=== PATIENT | male | born 1930 | race Two or more races ===

== ENCOUNTER → 2017-02-04 | Outpatient (CLI) | payer OTHER ==
[~2017-02-04] MED LIST: ASPI325T4 PO; ATOR40TA52 PO; IBU800T PO; LOSA25TA9 PO; MISO200T67 PO; MULT-13; NORT25CA PO; PRED-559 PO; TAMS0.4C36 PO
== END | disposition home or self-care (01) ==
LOC: XY 09:44
PROVIDERS: ATTEND Internal Medicine
DX: M79.604 Pain in right leg (principal); E78.00 Pure hypercholesterolemia, unspecified; I10 Essential (primary) hypertension
CPT/HCPCS: 93923; 93925

== ENCOUNTER → 2017-08-25 | Outpatient (CLI) | payer OTHER ==
[~2017-08-25] MED LIST changes: -IBU800T PO; +IBUP800T24 PO
[2017-08-25 08:02] LABS: Urine Bacteria NONE SEEN /hpf (None Seen); Urine Blood Negative /uL (Negative); Urine Specific Gravity 1.011 (1.001-1.035); Urine WBC <1 /hpf (0 - 3)
[2017-08-25 08:03] LABS: Basophils # (auto) 0.1 uL; Basophils % (auto) 0.9 % (0.0-2.0); Eosinophils # (auto) 0.3 uL; Eosinophils % (auto) 4.6 % (0.0-7.0); Hematocrit 43.3 % (41.0-53.0); Hemoglobin 14.6 g/dL (13.5-17.5); Lymphocytes # (auto) 1.8 uL; Lymphocytes % (auto) 26.4 % (10.0-50.0); Mean Corpuscular Hemoglobin 30.6 pg (28.0-32.0); Mean Corpuscular Hgb Conc. 33.7 g/dL (32.0-36.0); Monocytes # (auto) 0.6 uL; Monocytes % (auto) 8.5 % (0.0-12.0); Neutrophils # (auto) 4.1 uL; Neutrophils % (auto) 59.6 % (37.0-80.0); Nucleated Red Blood Cells % 0.1 %; Platelet Count (auto) 231 10^3/uL (140-450); Red Blood Cells 4.76 10^6/uL (4.5-5.90); Red Cell Distribution Width 14.8 % (11.8-14.3); White Blood Cell 6.9 10^3/uL (4.4-10.8)
[2017-08-25 09:12] LABS: Albumin 3.8 g/dL (3.4-5.0); BUN/Creatinine Ratio 18.8; Bilirubin, Total 0.5 mg/dL (0.2-1.0); Calcium 9.2 mg/dL (8.5-10.1); Potassium 4.1 mmol/L (3.5-5.1); Total Protein 8.1 g/dL (6.4-8.2)
== END | disposition home or self-care (01) ==
LOC: LAB 06:33
PROVIDERS: ATTEND Family Medicine
DX: E11.8 Type 2 diabetes mellitus with unspecified complications (principal); I10 Essential (primary) hypertension; E55.9 Vitamin D deficiency, unspecified; E78.5 Hyperlipidemia, unspecified
CPT/HCPCS: 36415; 80053; 80061; 81001; 82043; 82306; 83036; 85025

== ENCOUNTER → 2017-10-01 | Outpatient (CLI) | payer OTHER ==
[2017-10-02 08:07] LABS: PSA Free 1.68 ng/mL; Prostate Specific Antigen 7.4 ng/mL (0.0-4.0)
== END | disposition home or self-care (01) ==
LOC: LAB 06:28
PROVIDERS: ATTEND Urology
DX: N40.1 Benign prostatic hyperplasia with lower urinary tract symptoms (principal)
CPT/HCPCS: 84153; 84154

== ENCOUNTER 2017-10-08 07:15 | Emergency (ER) | payer OTHER ==
[~2017-10-08] VITALS: Ht 172.7 cm; Wt 104.3 kg
[2017-10-08 07:40] VITALS: BP 146/86
[2017-10-08] MEDS ORDERED: cloNIDine HCL 0.1 MG TAB PO ONE (08:00)
[2017-10-08 08:04] LABS: Urine RBC None Seen /hpf (0 - 3)
[2017-10-08 08:10] LABS: Urine Bilirubin Negative (Negative); Urine Blood Negative /uL (Negative); Urine Color Yellow (Yellow); Urine Glucose Normal (Normal); Urine Ketone Negative (Negative); Urine Nitrite Negative (Negative); Urine Squamous Epithelial Cell FEW /hpf (<5); Urine Urobilinogen Normal (Negative)
== END 2017-10-08 08:25 | disposition home or self-care (01) ==
LOC: ER 07:15
DX: I16.0 Hypertensive urgency (principal); I10 Essential (primary) hypertension; K21.9 Gastro-esophageal reflux disease without esophagitis; E78.5 Hyperlipidemia, unspecified; R42 Dizziness and giddiness; Z79.82 Long term (current) use of aspirin; Z79.899 Other long term (current) drug therapy
CPT/HCPCS: 81001; 93005

== ENCOUNTER → 2018-10-28 | Outpatient (CLI) | payer OTHER ==
[~2018-10-28] MED LIST changes: +LOSA25TA40 PO; -LOSA25TA9 PO
[2018-10-28 08:25] LABS: Basophils # (auto) 0.1 uL; Basophils % (auto) 1.3 % (0.0-2.0); Eosinophils # (auto) 0.2 uL; Eosinophils % (auto) 4.1 % (0.0-7.0); Hematocrit 45.5 % (41.0-53.0); Hemoglobin 14.9 g/dL (13.5-17.5); Lymphocytes # (auto) 1.3 uL; Lymphocytes % (auto) 21.3 % (10.0-50.0); Mean Corpuscular Hemoglobin 30.5 pg (28.0-32.0); Mean Corpuscular Hgb Conc. 32.7 g/dL (32.0-36.0); Mean Corpuscular Volume 93.2 fL (80.0-100.0); Monocytes # (auto) 0.6 uL; Monocytes % (auto) 9.4 % (0.0-12.0); Neutrophils # (auto) 3.8 uL; Neutrophils % (auto) 63.9 % (37.0-80.0); Nucleated Red Blood Cells % 0.1 %; Platelet Count (auto) 214 10^3/uL (140-450); Red Blood Cells 4.88 10^6/uL (4.5-5.90); Red Cell Distribution Width 14.3 % (11.8-14.3); White Blood Cell 5.9 10^3/uL (4.4-10.8)
[2018-10-28 08:28] LABS: Urine Bacteria NONE SEEN /hpf (None Seen); Urine Blood Negative /uL (Negative); Urine Mucus FEW (None Seen); Urine WBC 1 /hpf (0 - 3)
[2018-10-28 08:45] LABS: Albumin 3.4 g/dL (3.4-5.0); BUN/Creatinine Ratio 16.3; Calcium 8.5 mg/dL (8.5-10.1); Potassium 4.2 mmol/L (3.5-5.1)
[2018-10-28 08:51] LABS: Bilirubin, Total 0.5 mg/dL (0.2-1.0); Total Protein 7.4 g/dL (6.4-8.2)
== END | disposition home or self-care (01) ==
LOC: LAB 07:55
PROVIDERS: ATTEND Internal Medicine
DX: I10 Essential (primary) hypertension (principal); E78.5 Hyperlipidemia, unspecified; E11.65 Type 2 diabetes mellitus with hyperglycemia; E66.01 Morbid (severe) obesity due to excess calories
CPT/HCPCS: 36415; 80053; 80061; 81001; 82043; 83036; 84439; 84443; 85025

== ENCOUNTER 2018-12-10 10:12 | Emergency (ER) | payer OTHER ==
[~2018-12-10] VITALS: Ht 172.7 cm; Wt 108.9 kg
[2018-12-10 10:46] VITALS: BP 142/63
[2018-12-10] MEDS ORDERED: traMADol HCL 50 MG TAB PO ONE (11:00)
== END 2018-12-10 12:08 | disposition home or self-care (01) ==
LOC: ER 10:12
DX: M17.11 Unilateral primary osteoarthritis, right knee (principal); I10 Essential (primary) hypertension; E78.5 Hyperlipidemia, unspecified; K21.9 Gastro-esophageal reflux disease without esophagitis
CPT/HCPCS: 73562

== ENCOUNTER → 2019-02-03 | Day surgery (SDC) | payer OTHER ==
[2019-01-31 10:44] LABS: Basophils # (auto) 0 uL; Basophils % (auto) 0.7 % (0.0-2.0); Eosinophils # (auto) 0.2 uL; Eosinophils % (auto) 2.7 % (0.0-7.0); Hematocrit 44.1 % (41.0-53.0); Hemoglobin 14.4 g/dL (13.5-17.5); Lymphocytes # (auto) 1.5 uL; Lymphocytes % (auto) 21.1 % (10.0-50.0); Mean Corpuscular Hemoglobin 29.9 pg (28.0-32.0); Mean Corpuscular Hgb Conc. 32.6 g/dL (32.0-36.0); Mean Corpuscular Volume 91.7 fL (80.0-100.0); Monocytes # (auto) 0.7 uL; Monocytes % (auto) 10.2 % (0.0-12.0); Neutrophils # (auto) 4.7 uL; Neutrophils % (auto) 65.3 % (37.0-80.0); Nucleated Red Blood Cells % 0.1 %; Platelet Count (auto) 257 10^3/uL (140-450); Red Blood Cells 4.81 10^6/uL (4.5-5.90); Red Cell Distribution Width 14.8 % (11.8-14.3); White Blood Cell 7.2 10^3/uL (4.4-10.8)
[2019-01-31 10:58] LABS: Partial Thromboplastin Time 26.9 sec (23.78-33.04); Prothrombin Time 10.7 sec (9.27-12.13)
[~2019-02-03] VITALS: Ht 172.7 cm; Wt 104.3 kg
[~2019-02-03] MED LIST changes: -ASPI325T4 PO; +ASPI81TA27 PO; +ATEN50TA PO; -IBUP800T24 PO; +LIDOCAINE VISCOUS 2% 15ML UD ONE; +MIDAZOLAM HCL 5 MG/ML-1ML VIAL ONE; -MISO200T67 PO; -MULT-13; -NORT25CA PO; -PRED-559 PO; +RANI1TAB6 PO; +SODIUM CHLORIDE LOCK 10 ML ONE; -TAMS0.4C36 PO; +diphenhdrAMINE HCL 50 MG/1 ML VL ONE; +fentaNYL CITRATE 100 MCG/2 ML VL ONE
[2019-02-03 10:54] VITALS: BP 140/88
== END | disposition home or self-care (01) ==
LOC: GI 08:44
PROVIDERS: ATTEND Internal Medicine Gastroenterology
DX: K29.80 Duodenitis without bleeding (principal); K29.70 Gastritis, unspecified, without bleeding; E66.9 Obesity, unspecified; Z88.8 Allergy status to other drugs, medicaments and biological substances; Z88.5 Allergy status to narcotic agent; Z87.891 Personal history of nicotine dependence; Z79.82 Long term (current) use of aspirin; Z82.49 Family history of ischemic heart disease and other diseases of the circulatory system; Z80.9 Family history of malignant neoplasm, unspecified; Z68.35 Body mass index [BMI] 35.0-35.9, adult; Z79.899 Other long term (current) drug therapy
CPT/HCPCS: 36415; 43239; 82962; 85025; 85610; 85730; 88305; 88342; A6257; J2250; J3010; J7030

== ENCOUNTER → 2019-04-06 | Outpatient (CLI) | payer OTHER ==
[~2019-04-06] MED LIST changes: -LIDOCAINE VISCOUS 2% 15ML UD ONE; -MIDAZOLAM HCL 5 MG/ML-1ML VIAL ONE; -SODIUM CHLORIDE LOCK 10 ML ONE; -diphenhdrAMINE HCL 50 MG/1 ML VL ONE; -fentaNYL CITRATE 100 MCG/2 ML VL ONE
[2019-04-06 07:48] LABS: Basophils # (auto) 0.1 uL; Basophils % (auto) 1.1 % (0.0-2.0); Eosinophils # (auto) 0.2 uL; Eosinophils % (auto) 4.4 % (0.0-7.0); Hematocrit 44.7 % (41.0-53.0); Hemoglobin 14.6 g/dL (13.5-17.5); Lymphocytes # (auto) 1.5 uL; Lymphocytes % (auto) 28.6 % (10.0-50.0); Mean Corpuscular Hgb Conc. 32.7 g/dL (32.0-36.0); Mean Corpuscular Volume 91.7 fL (80.0-100.0); Monocytes # (auto) 0.5 uL; Neutrophils % (auto) 56.9 % (37.0-80.0); Platelet Count (auto) 218 10^3/uL (140-450); Red Blood Cells 4.87 10^6/uL (4.5-5.90); Red Cell Distribution Width 15.3 % (11.8-14.3); White Blood Cell 5.3 10^3/uL (4.4-10.8)
[2019-04-06 08:42] LABS: Potassium 4.3 mmol/L (3.5-5.1)
[2019-04-06 08:51] LABS: Folate (Folic Acid) 6.28 ng/mL (5.38-24)
[2019-04-06 08:56] LABS: Albumin 3.4 g/dL (3.4-5.0); BUN/Creatinine Ratio 10.2; Bilirubin, Total 0.5 mg/dL (0.2-1.0); Calcium 8.5 mg/dL (8.5-10.1); Total Protein 7.7 g/dL (6.4-8.2)
== END | disposition home or self-care (01) ==
LOC: LAB 07:08
PROVIDERS: ATTEND Internal Medicine
DX: I10 Essential (primary) hypertension (principal)
CPT/HCPCS: 36415; 80053; 80061; 82607; 82746; 83036; 85025

== ENCOUNTER → 2019-07-19 | Outpatient (CLI) | payer OTHER ==
[~2019-07-19] VITALS: Ht 172.7 cm; Wt 113.4 kg
[~2019-07-19] MED LIST changes: +ADENOSINE 95 MG in GIVE UN-DILUTED 0 ML IV ONE; +ASPI-404 PO; -ASPI81TA27 PO; +LOSA25TA38 PO; -LOSA25TA40 PO; +RANI-435 PO; -RANI1TAB6 PO
[2019-07-19 11:08] VITALS: BP 171/87
== END | disposition home or self-care (01) ==
LOC: XY 09:11
PROVIDERS: ATTEND Internal Medicine
DX: I10 Essential (primary) hypertension (principal); E78.5 Hyperlipidemia, unspecified; E11.9 Type 2 diabetes mellitus without complications; R53.83 Other fatigue; R29.898 Other symptoms and signs involving the musculoskeletal system; M19.90 Unspecified osteoarthritis, unspecified site
CPT/HCPCS: 78452; 93017; A9500; J0153

== ENCOUNTER → 2019-08-10 | Outpatient (CLI) | payer OTHER ==
[~2019-08-10] MED LIST changes: -ADENOSINE 95 MG in GIVE UN-DILUTED 0 ML IV ONE
== END | disposition home or self-care (01) ==
LOC: XYW 09:53
PROVIDERS: ATTEND Internal Medicine
DX: I11.9 Hypertensive heart disease without heart failure (principal); I06.8 Other rheumatic aortic valve diseases
CPT/HCPCS: 93306

== ENCOUNTER 2019-09-28 22:38 | Emergency (ER) | payer OTHER ==
[~2019-09-28] VITALS: Ht 172.7 cm; Wt 108.0 kg
[2019-09-28 23:40] LABS: Basophils # (auto) 0.1 uL; Basophils % (auto) 0.8 % (0.0-2.0); Eosinophils # (auto) 0.3 uL; Eosinophils % (auto) 4.8 % (0.0-7.0); Hematocrit 44.7 % (41.0-53.0); Hemoglobin 14.7 g/dL (13.5-17.5); Lymphocytes # (auto) 1.4 uL; Lymphocytes % (auto) 22.1 % (10.0-50.0); Mean Corpuscular Hemoglobin 30.1 pg (28.0-32.0); Mean Corpuscular Hgb Conc. 32.9 g/dL (32.0-36.0); Mean Corpuscular Volume 91.5 fL (80.0-100.0); Monocytes # (auto) 0.8 uL; Monocytes % (auto) 12.1 % (0.0-12.0); Neutrophils # (auto) 3.8 uL; Neutrophils % (auto) 60.2 % (37.0-80.0); Platelet Count (auto) 211 10^3/uL (140-450); Red Blood Cells 4.88 10^6/uL (4.5-5.90); Red Cell Distribution Width 14.7 % (11.8-14.3); White Blood Cell 6.3 10^3/uL (4.4-10.8)
[2019-09-29] LABS: Albumin 3.1 g/dL (3.4-5.0); Amylase 64 U/L (25-115); Anion Gap 5 (5-15); Blood Urea Nitrogen 23 mg/dL (7-18); Calcium 8.4 mg/dL (8.5-10.1); Carbon Dioxide 27 mmol/L (21-32); Chloride 105 mmol/L (98-107); Glucose 145 mg/dL (74-106); Lipase 220 U/L (73-393); Magnesium 2.5 mg/dL (1.6-2.6); Potassium 4.1 mmol/L (3.5-5.1); Sodium 137 mmol/L (136-145)
[2019-09-29 00:08] LABS: Alanine Aminotransferase 16 U/L (16-61); Alkaline Phosphatase 106 U/L (45-117); Aspartate Aminotransferase 11 U/L (15-37); BUN/Creatinine Ratio 18.5; Bilirubin, Total 0.2 mg/dL (0.2-1.0); GFR African American 71 mL/min; GFR Non-African American 59 mL/min; Total Protein 7.5 g/dL (6.4-8.2)
[2019-09-29 04:52] LABS: Urine Bacteria NONE SEEN /hpf (None Seen); Urine Blood Negative /uL (Negative); Urine Specific Gravity 1.006 (1.001-1.035); Urine WBC 27 /hpf (0 - 3)
[2019-09-29 05:00] VITALS: BP 147/76
[2019-09-29] MEDS ORDERED: ACETAMINOPHEN 500 MG TAB PO ONE ×2 (06:00→07:00)
== END 2019-09-29 07:10 | disposition home or self-care (01) ==
LOC: ER 22:38
DX: N39.0 Urinary tract infection, site not specified (principal); K21.9 Gastro-esophageal reflux disease without esophagitis; M13.862 Other specified arthritis, left knee; M13.861 Other specified arthritis, right knee; E11.9 Type 2 diabetes mellitus without complications; E78.5 Hyperlipidemia, unspecified; I10 Essential (primary) hypertension; Z79.899 Other long term (current) drug therapy; Z88.6 Allergy status to analgesic agent
CPT/HCPCS: 36415; 74176; 80053; 81001; 82150; 83690; 83735; 84484; 85025; 93005

== ENCOUNTER → 2019-10-23 | Outpatient (CLI) | payer OTHER ==
[2019-10-23 09:26] LABS: Basophils # (auto) 0.1 uL; Eosinophils # (auto) 0.3 uL; Eosinophils % (auto) 5.2 % (0.0-7.0); Hematocrit 46.9 % (41.0-53.0); Hemoglobin 15.6 g/dL (13.5-17.5); Lymphocytes # (auto) 1.4 uL; Lymphocytes % (auto) 25.5 % (10.0-50.0); Mean Corpuscular Hemoglobin 30.5 pg (28.0-32.0); Mean Corpuscular Hgb Conc. 33.3 g/dL (32.0-36.0); Mean Corpuscular Volume 91.6 fL (80.0-100.0); Monocytes # (auto) 0.5 uL; Monocytes % (auto) 9.5 % (0.0-12.0); Neutrophils # (auto) 3.3 uL; Neutrophils % (auto) 58.8 % (37.0-80.0); Nucleated Red Blood Cells % 0.1 %; Platelet Count (auto) 208 10^3/uL (140-450); Red Blood Cells 5.12 10^6/uL (4.5-5.90); Red Cell Distribution Width 14.3 % (11.8-14.3); White Blood Cell 5.6 10^3/uL (4.4-10.8)
[2019-10-23 09:51] LABS: Urine Bacteria NONE SEEN /hpf (None Seen); Urine Blood Negative /uL (Negative); Urine Mucus FEW (None Seen); Urine Specific Gravity 1.017 (1.001-1.035); Urine WBC <1 /hpf (0 - 3)
[2019-10-23 10:07] LABS: Potassium 4.5 mmol/L (3.5-5.1)
[2019-10-23 10:19] LABS: Albumin 3.4 g/dL (3.4-5.0); BUN/Creatinine Ratio 19.4; Bilirubin, Total 0.6 mg/dL (0.2-1.0); Calcium 9.1 mg/dL (8.5-10.1); Total Protein 7.5 g/dL (6.4-8.2)
== END | disposition home or self-care (01) ==
LOC: LAB 08:39
PROVIDERS: ATTEND Internal Medicine
DX: E11.22 Type 2 diabetes mellitus with diabetic chronic kidney disease (principal); N18.9 Chronic kidney disease, unspecified
CPT/HCPCS: 36415; 80053; 80061; 81001; 82043; 82607; 83036; 84443; 85025

== ENCOUNTER 2020-02-08 09:08 | Inpatient (IN) | payer OTHER ==
[~2020-02-08] VITALS: Ht 172.7 cm; Wt 106.0 kg
[2020-02-08] MEDS ORDERED: cloNIDine HCL 0.1 MG TAB PO ONE ×2 (09:30)
[2020-02-08] MEDS ORDERED: FUROSEMIDE 40 MG/4 ML VIAL IV ONE (09:30)
[2020-02-08 09:35] LABS: Basophils # (auto) 0.1 10 ^3/uL (0-0.2); Basophils % (auto) 0.9 % (0.0-2.0); Eosinophils # (auto) 0.2 10 ^3/uL (0-0.8); Eosinophils % (auto) 3.4 % (0.0-7.0); Hematocrit 44.8 % (41.0-53.0); Lymphocytes # (auto) 1.5 10 ^3/uL (0.4-5.4); Lymphocytes % (auto) 21.2 % (10.0-50.0); Mean Corpuscular Hemoglobin 31.1 pg (28.0-32.0); Mean Corpuscular Hgb Conc. 33.5 g/dL (32.0-36.0); Mean Corpuscular Volume 92.7 fL (80.0-100.0); Monocytes # (auto) 0.6 10 ^3/uL (0-1.3); Neutrophils # (auto) 4.6 10 ^3/uL (1.6-8.6); Neutrophils % (auto) 65.5 % (37.0-80.0); Nucleated Red Blood Cells % 0.1 %; Platelet Count (auto) 218 10^3/uL (140-450); Red Blood Cells 4.83 10^6/uL (4.5-5.90); Red Cell Distribution Width 14.1 % (11.8-14.3)
[2020-02-08 09:49] LABS: Albumin 3.4 g/dL (3.4-5.0); Anion Gap 7 (5-15); Blood Urea Nitrogen 18 mg/dL (7-18); Calcium 8.3 mg/dL (8.5-10.1); Carbon Dioxide 25 mmol/L (21-32); Chloride 106 mmol/L (98-107); Glucose 134 mg/dL (74-106); Potassium 4.3 mmol/L (3.5-5.1); Sodium 138 mmol/L (136-145)
[2020-02-08 09:54] LABS: Alanine Aminotransferase 15 U/L (16-61); Alkaline Phosphatase 77 U/L (45-117); Aspartate Aminotransferase 15 U/L (15-37); BUN/Creatinine Ratio 16.1; Bilirubin, Total 0.6 mg/dL (0.2-1.0); GFR African American 80 mL/min; GFR Non-African American 66 mL/min; Total Protein 7.5 g/dL (6.4-8.2)
[2020-02-08] MEDS ORDERED: FUROSEMIDE 100 MG/10ML VIAL IV ONE (10:00)
[2020-02-08 10:46] LABS: Urine Bacteria NONE SEEN /hpf (None Seen); Urine Blood Negative /uL (Negative); Urine Specific Gravity 1.005 (1.001-1.035); Urine WBC 1 /hpf (0 - 3)
[2020-02-08] MEDS ORDERED: MORPHINE SULF INJ 2 MG/ML SYRINGE 1ML IV PRN (13:15)
[2020-02-08] MEDS ORDERED: MECLIZINE HCL 25 MG TAB PO ONE (13:15)
[2020-02-08] MEDS ORDERED: NITROGLYCERIN 0.4 MG SL TAB SL PRN (13:15)
[2020-02-08] MEDS ORDERED: traMADol HCL 50 MG TAB PO PRN (13:15)
[2020-02-08] MEDS ORDERED: DEXTROSE (50%) 50ML SYRG IV PRN (13:15)
[2020-02-08] MEDS ORDERED: ACETAMINOPHEN 500 MG TAB PO PRN (13:15)
[2020-02-08] MEDS ORDERED: ONDANSETRON HCL 4 MG/2 ML VIAL IV PRN (13:15)
[2020-02-08] MEDS ORDERED: LABETALOL HCL 5 MG/ML ML 20ML VIAL IV PRN (13:15)
[2020-02-08] MEDS ORDERED: LACTULOSE 20Gm/30ML SOLN PO PRN (13:15)
[2020-02-08] MEDS ORDERED: FOLIC ACID 1 MG TAB PO ONE (16:30)
[2020-02-08] MEDS: InsuLIN REG 1unit/0.01ml Soln (100units/ml) SC SCH ×2 (17:00→22:18)
[2020-02-08] MEDS: ACCU-CHEK COMFORT CURVE STRIP VI SCH ×2 (17:01→22:16)
[2020-02-08 18:30] VITALS: BP 164/101
[2020-02-08 22:00] VITALS: BP 128/77
[2020-02-08] MEDS ORDERED: ATORVASTATIN 20 MG TAB PO SCH ×2 (22:00)
[2020-02-08] MEDS: FAMOTIDINE 20 MG TAB PO SCH (22:09)
[2020-02-09 05:00] VITALS: BP 142/68
[2020-02-09] MEDS: InsuLIN REG 1unit/0.01ml Soln (100units/ml) SC SCH ×2 (06:57→11:30)
[2020-02-09] MEDS: ACCU-CHEK COMFORT CURVE STRIP VI SCH ×2 (06:57→11:36)
[2020-02-09 09:03] VITALS: BP 159/86
[2020-02-09] MEDS: FAMOTIDINE 20 MG TAB PO SCH (09:45)
[2020-02-09] MEDS ORDERED: ENOXAPARIN SOD 40 MG/0.4 ML SYRINGE SC SCH (10:00)
[2020-02-09] MEDS ORDERED: ASPirin-EC 81 mg tab PO SCH (10:00)
[2020-02-09] MEDS ORDERED: FOLIC ACID 1 MG TAB PO SCH (10:00)
[2020-02-09] MEDS ORDERED: POTASSIUM CHL 20 Meq TABLET PO SCH (10:00)
[2020-02-09] MEDS ORDERED: LOSARTAN POTASSIUM 25 MG TAB PO SCH (10:00)
[2020-02-09] MEDS ORDERED: FUROSEMIDE 100 MG/10ML VIAL IV SCH (10:00)
[2020-02-09] MEDS ORDERED: ENALAPRIL MALEATE 2.5 MG TAB PO SCH (10:00)
[2020-02-09] MEDS ORDERED: ATENOLOL 50 MG TAB PO SCH (10:00)
[2020-02-09 13:00] VITALS: BP 130/74
[2020-02-09 15:28] VITALS: BP 130/74
== END 2020-02-09 16:29 | disposition home or self-care (01) | DRG 149 ==
LOC: ER 09:08 → TELE 09:09 → TELE-WESTW 18:27
PROVIDERS: ADMIT Internal Medicine; ATTEND Internal Medicine
DX: R42 Dizziness and giddiness (principal); E66.9 Obesity, unspecified; N40.0 Benign prostatic hyperplasia without lower urinary tract symptoms; E11.9 Type 2 diabetes mellitus without complications; E78.5 Hyperlipidemia, unspecified; I11.0 Hypertensive heart disease with heart failure; K21.9 Gastro-esophageal reflux disease without esophagitis; Z82.49 Family history of ischemic heart disease and other diseases of the circulatory system; Z68.35 Body mass index [BMI] 35.0-35.9, adult; I50.9 Heart failure, unspecified
CPT/HCPCS: 36415; 70450; 71045; 73562; 80053; 81001; 82962; 83036; 83735; 83880; 84443; 84484; 85025; 85379; 85652; 86141; 93005; 93306; 93886; 93970; 99291; G0378; J1815

== ENCOUNTER 2020-02-17 07:24 | Inpatient (IN) | payer OTHER ==
[~2020-02-17] VITALS: Ht 172.7 cm; Wt 109.3 kg
[~2020-02-17 07:24] MED LIST changes: -ASPI-404 PO; +ASPI-543 PO; -ATOR40TA52 PO; -RANI-435 PO
[2020-02-17 09:34] LABS: Basophils # (auto) 0.1 10 ^3/uL (0-0.2); Basophils % (auto) 1.2 % (0.0-2.0); Eosinophils # (auto) 0.3 10 ^3/uL (0-0.8); Eosinophils % (auto) 3.8 % (0.0-7.0); Hematocrit 45.1 % (41.0-53.0); Hemoglobin 14.7 g/dL (13.5-17.5); Lymphocytes # (auto) 1.4 10 ^3/uL (0.4-5.4); Lymphocytes % (auto) 21.2 % (10.0-50.0); Mean Corpuscular Hemoglobin 30.2 pg (28.0-32.0); Mean Corpuscular Hgb Conc. 32.6 g/dL (32.0-36.0); Mean Corpuscular Volume 92.6 fL (80.0-100.0); Monocytes # (auto) 0.6 10 ^3/uL (0-1.3); Monocytes % (auto) 9.6 % (0.0-12.0); Neutrophils # (auto) 4.4 10 ^3/uL (1.6-8.6); Neutrophils % (auto) 64.2 % (37.0-80.0); Nucleated Red Blood Cells % 0.1 %; Platelet Count (auto) 213 10^3/uL (140-450); Red Blood Cells 4.87 10^6/uL (4.5-5.90); Red Cell Distribution Width 14.2 % (11.8-14.3); White Blood Cell 6.8 10^3/uL (4.4-10.8)
[2020-02-17] MEDS ORDERED: SODIUM CHLORIDE 0.9% 1,000 ML IV ONE (09:37)
[2020-02-17 09:53] LABS: Albumin 3.4 g/dL (3.4-5.0); Calcium 8.4 mg/dL (8.5-10.1); Potassium 4.4 mmol/L (3.5-5.1)
[2020-02-17 09:58] LABS: BUN/Creatinine Ratio 16.8; Bilirubin, Total 0.6 mg/dL (0.2-1.0); Total Protein 7.7 g/dL (6.4-8.2)
[2020-02-17 10:02] LABS: Urine Bacteria NONE SEEN /hpf (None Seen); Urine Blood Negative /uL (Negative); Urine Mucus FEW (None Seen); Urine Specific Gravity 1.018 (1.001-1.035); Urine WBC 1 /hpf (0 - 3)
[2020-02-17] MEDS ORDERED: IOHEXOL 300 MG/ML 100ML BOTTLE IJ ONE (10:11)
[2020-02-17] MEDS ORDERED: IODIXANOL 320MG/ML 100ML BTL IV ONE (10:14)
[2020-02-17 10:46] LABS: Magnesium 2.3 mg/dL (1.6-2.6)
[2020-02-17 10:52] LABS: INR 1.07 (0.9-1.15); Partial Thromboplastin Time 32.1 sec (23.64-32.05)
[2020-02-17] MEDS ORDERED: MORPHINE SULF INJ 2 MG/ML SYRINGE 1ML IV PRN (11:30)
[2020-02-17] MEDS ORDERED: DEXTROSE (50%) 50ML SYRG IV PRN (11:30)
[2020-02-17] MEDS ORDERED: LACTULOSE 20Gm/30ML SOLN PO PRN (11:30)
[2020-02-17] MEDS ORDERED: ACETAMINOPHEN 500 MG TAB PO PRN (11:30)
[2020-02-17] MEDS ORDERED: ONDANSETRON HCL 4 MG/2 ML VIAL IV PRN (11:30)
[2020-02-17] MEDS ORDERED: PANTOPRAZOLE 40 MG/10 ML VIAL INJ IV ONE (11:30)
[2020-02-17] MEDS ORDERED: NITROGLYCERIN 0.4 MG SL TAB SL PRN (11:30)
[2020-02-17] MEDS: SODIUM CHLORIDE 0.9% 1,000 ML IV SCH ×3 (11:59→21:28)
[2020-02-17] MEDS: InsuLIN REG 1unit/0.01ml Soln (100units/ml) SC SCH ×3 (12:00→23:26)
[2020-02-17] MEDS: ACCU-CHEK COMFORT CURVE STRIP VI SCH ×3 (12:05→23:26)
[2020-02-17 12:18] LABS: Hematocrit 43.2 % (41.0-53.0)
--- NOTE | 2020-02-17 12:19 | NUR ---
Telemetry admit from ER CHELO SANON admitted to Telemetry unit after SBAR received. Patient oriented to LISETTE LEAL, RN primary RN, unit, room, bed, and unit policies regarding patient care and visiting hours. Patient now on continuous telemetry monitoring, tele box # [id number] and telemetry reading on arrival to unit is SR. Patient weighed by bedscale and encouraged to call if they need something. All questions and concerns addressed, patient verbalized understanding.
--- NOTE | 2020-02-17 13:00 | NUR ---
SPOKE TO DR. MARTINEZ REGARDING NG TUBE ORDERS. PER DR. MARTINEZ THE PATIENT DOES NOT NEED AN NG TUBE AT THIS TIME AND THE ISSUE WILL BE EVALUATED TOMORROW. NEW ORDERS RECEIVED, READ BACK AND VERIFIED.
[2020-02-17 13:31] VITALS: BP 156/95
--- NOTE | 2020-02-17 14:50 | NUR ---
SPOKE TO DR. MARTINEZ REGARDING PATIENTS DIET. NEW ORDERS RECEIVED, READ BACK AND VERIFIED. SEE EMR FOR ORDERS.
--- NOTE | 2020-02-17 16:21 | NUR ---
SPOKE TO DR. BARDALES REGARDING PATIENTS HOME MEDICATIONS. NEW ORDERS RECEIVED, READ BACK AND VERIFIED. SEE EMR FOR ORDERS.
[2020-02-17 17:00] VITALS: BP 167/95
[2020-02-17] MEDS: LOSARTAN POTASSIUM 25 MG TAB PO SCH (17:00)
[2020-02-17] MEDS: ATENOLOL 50 MG TAB PO SCH (17:13)
[2020-02-17 18:35] LABS: Hematocrit 42.8 % (41.0-53.0); Hemoglobin 13.9 g/dL (13.5-17.5)
[2020-02-17] MEDS: PANTOPRAZOLE 40 MG TAB PO SCH (21:15)
[2020-02-17 22:02] VITALS: BP 148/85
[2020-02-18 01:15] LABS: Hemoglobin 14.2 g/dL (13.5-17.5)
[2020-02-18] MEDS: InsuLIN REG 1unit/0.01ml Soln (100units/ml) SC SCH ×2 (05:57→12:00)
[2020-02-18] MEDS: SODIUM CHLORIDE 0.9% 1,000 ML IV SCH (05:57)
[2020-02-18] MEDS: ACCU-CHEK COMFORT CURVE STRIP VI SCH ×2 (05:57→12:29)
[2020-02-18 06:52] LABS: Basophils # (auto) 0 10 ^3/uL (0-0.2); Basophils % (auto) 0.8 % (0.0-2.0); Eosinophils # (auto) 0.2 10 ^3/uL (0-0.8); Eosinophils % (auto) 3.8 % (0.0-7.0); Hematocrit 42.4 % (41.0-53.0); Hemoglobin 13.9 g/dL (13.5-17.5); Lymphocytes # (auto) 0.8 10 ^3/uL (0.4-5.4); Lymphocytes % (auto) 13.6 % (10.0-50.0); Mean Corpuscular Hemoglobin 30.5 pg (28.0-32.0); Mean Corpuscular Hgb Conc. 32.8 g/dL (32.0-36.0); Mean Corpuscular Volume 92.7 fL (80.0-100.0); Monocytes # (auto) 0.5 10 ^3/uL (0-1.3); Monocytes % (auto) 9.6 % (0.0-12.0); Neutrophils # (auto) 4.1 10 ^3/uL (1.6-8.6); Neutrophils % (auto) 72.2 % (37.0-80.0); Nucleated Red Blood Cells % 0.1 %; Platelet Count (auto) 199 10^3/uL (140-450); Red Blood Cells 4.57 10^6/uL (4.5-5.90); White Blood Cell 5.7 10^3/uL (4.4-10.8)
[2020-02-18 07:13] LABS: Albumin 3.2 g/dL (3.4-5.0); Calcium 8.4 mg/dL (8.5-10.1); Potassium 4.6 mmol/L (3.5-5.1)
[2020-02-18 07:16] LABS: BUN/Creatinine Ratio 11.7; Bilirubin, Total 0.5 mg/dL (0.2-1.0); Total Protein 7.1 g/dL (6.4-8.2)
--- NOTE | 2020-02-18 07:30 | NUR ---
Opening Shift Note Assumed care of patient, awake and alert. No S/S of distress/SOB or pain. Bed in lowest and locked position with side rails upx2 and call light in reach. Instructed on POC and to call for assist PRN, will continue to monitor for changes Q1hr and PRN.
[2020-02-18 09:00] VITALS: BP 168/98
[2020-02-18] MEDS ORDERED: ATENOLOL 50 MG TAB PO SCH (10:00)
[2020-02-18] MEDS: LOSARTAN POTASSIUM 25 MG TAB PO SCH (10:00)
[2020-02-18] MEDS ORDERED: LOSARTAN POTASSIUM 25 MG TAB PO SCH (10:00)
[2020-02-18] MEDS: PANTOPRAZOLE 40 MG TAB PO SCH (10:45)
[2020-02-18] MEDS: ATENOLOL 50 MG TAB PO SCH (10:46)
[2020-02-18] MEDS ORDERED: GOLYTELY 4L KIT PO ONE (12:00)
[2020-02-18 13:00] VITALS: BP 160/99
[2020-02-18 13:30] VITALS: BP 148/78
--- NOTE | 2020-02-18 15:23 | NUR ---
Discharge instructions given as ordered. Encourage to follow up with PMD as instructed. All questions and concerns addressed. Patient verbalized understanding. Medication reconciliation form completed and copy given to patient. No Home medications held in Pharmacy. No needed vaccines. IV removed with catheter intact, pressure dressing applied. Telemetry unit returned to ICU. Patient taken to vehicle via wheelchair with all personal belongings, accompanied by staff and family member. No distress noted at time of departure.
[2020-02-19] MEDS ORDERED: GOLYTELY 4L KIT PO ONE (06:00)
== END 2020-02-18 15:32 | disposition home or self-care (01) | DRG 378 ==
LOC: ER 07:24 → TELE-WESTW 07:25
PROVIDERS: ADMIT Internal Medicine; ATTEND Internal Medicine
DX: K57.31 Diverticulosis of large intestine without perforation or abscess with bleeding (principal); N17.9 Acute kidney failure, unspecified; E11.21 Type 2 diabetes mellitus with diabetic nephropathy; E78.5 Hyperlipidemia, unspecified; I10 Essential (primary) hypertension; I25.9 Chronic ischemic heart disease, unspecified; K21.9 Gastro-esophageal reflux disease without esophagitis; N40.1 Benign prostatic hyperplasia with lower urinary tract symptoms; E66.9 Obesity, unspecified; K40.20 Bilateral inguinal hernia, without obstruction or gangrene, not specified as recurrent; M19.90 Unspecified osteoarthritis, unspecified site; Z82.49 Family history of ischemic heart disease and other diseases of the circulatory system; Z79.899 Other long term (current) drug therapy; Z68.36 Body mass index [BMI] 36.0-36.9, adult
CPT/HCPCS: 36415; 71046; 74177; 80053; 81001; 82270; 82378; 82962; 83036; 83690; 83735; 85014; 85018; 85025; 85045; 85610; 85730; 87081; 87493; C9113; G0378; Q9967

== ENCOUNTER 2020-03-24 05:01 | Emergency (ER) | payer OTHER ==
[~2020-03-24] VITALS: Ht 172.7 cm; Wt 106.6 kg
[~2020-03-24 05:01] MED LIST changes: +ASPI-404 PO; -ASPI-543 PO
[2020-03-24 06:45] LABS: Basophils # (auto) 0.1 10 ^3/uL (0-0.2); Basophils % (auto) 0.8 % (0.0-2.0); Eosinophils # (auto) 0.3 10 ^3/uL (0-0.8); Eosinophils % (auto) 4.1 % (0.0-7.0); Hematocrit 44.3 % (41.0-53.0); Hemoglobin 14.7 g/dL (13.5-17.5); Lymphocytes # (auto) 1.1 10 ^3/uL (0.4-5.4); Lymphocytes % (auto) 16.6 % (10.0-50.0); Mean Corpuscular Hemoglobin 30.6 pg (28.0-32.0); Mean Corpuscular Hgb Conc. 33.2 g/dL (32.0-36.0); Mean Corpuscular Volume 92.2 fL (80.0-100.0); Monocytes # (auto) 0.6 10 ^3/uL (0-1.3); Monocytes % (auto) 8.6 % (0.0-12.0); Neutrophils # (auto) 4.5 10 ^3/uL (1.6-8.6); Neutrophils % (auto) 69.9 % (37.0-80.0); Platelet Count (auto) 196 10^3/uL (140-450); White Blood Cell 6.4 10^3/uL (4.4-10.8)
[2020-03-24 07:00] LABS: INR 1.07 (0.9-1.15); Partial Thromboplastin Time 30.9 sec (23.64-32.05)
[2020-03-24 07:33] VITALS: BP 182/106
[2020-03-24] MEDS ORDERED: cloNIDine HCL 0.1 MG TAB PO ONE (07:45)
== END 2020-03-24 08:22 | disposition home or self-care (01) ==
LOC: ER 05:01
DX: R04.0 Epistaxis (principal); I10 Essential (primary) hypertension; K21.9 Gastro-esophageal reflux disease without esophagitis; E11.9 Type 2 diabetes mellitus without complications; Z79.899 Other long term (current) drug therapy
CPT/HCPCS: 36415; 85025; 85610; 85730

== ENCOUNTER 2020-05-27 09:10 | Emergency (ER) | payer OTHER ==
[~2020-05-27] VITALS: Ht 172.7 cm; Wt 112.0 kg
[~2020-05-27 09:10] MED LIST changes: -ASPI-404 PO; +ASPI-543 PO
[2020-05-27 09:34] LABS: Basophils # (auto) 0.1 10 ^3/uL (0-0.2); Basophils % (auto) 1.1 % (0.0-2.0); Eosinophils # (auto) 0.3 10 ^3/uL (0-0.8); Eosinophils % (auto) 4.8 % (0.0-7.0); Hematocrit 44.7 % (41.0-53.0); Hemoglobin 14.3 g/dL (13.5-17.5); Lymphocytes # (auto) 1.1 10 ^3/uL (0.4-5.4); Lymphocytes % (auto) 19.7 % (10.0-50.0); Mean Corpuscular Hemoglobin 29.9 pg (28.0-32.0); Mean Corpuscular Hgb Conc. 32.1 g/dL (32.0-36.0); Mean Corpuscular Volume 93.1 fL (80.0-100.0); Monocytes # (auto) 0.5 10 ^3/uL (0-1.3); Monocytes % (auto) 8.6 % (0.0-12.0); Neutrophils # (auto) 3.5 10 ^3/uL (1.6-8.6); Neutrophils % (auto) 65.8 % (37.0-80.0); Platelet Count (auto) 187 10^3/uL (140-450); Red Cell Distribution Width 14.9 % (11.8-14.3); White Blood Cell 5.4 10^3/uL (4.4-10.8)
[2020-05-27 09:52] LABS: Albumin 3.4 g/dL (3.4-5.0); Anion Gap 5 (5-15); Blood Urea Nitrogen 16 mg/dL (7-18); Calcium 8.5 mg/dL (8.5-10.1); Carbon Dioxide 26 mmol/L (21-32); Chloride 107 mmol/L (98-107); Glucose 144 mg/dL (74-106); Potassium 4.1 mmol/L (3.5-5.1); Sodium 138 mmol/L (136-145)
[2020-05-27 09:58] LABS: Alanine Aminotransferase 16 U/L (16-61); Alkaline Phosphatase 85 U/L (45-117); Aspartate Aminotransferase 13 U/L (15-37); BUN/Creatinine Ratio 13.9; Bilirubin, Total 0.5 mg/dL (0.2-1.0); GFR African American 77 mL/min; GFR Non-African American 64 mL/min; Total Protein 7.3 g/dL (6.4-8.2)
[2020-05-27 10:21] LABS: INR 1.01 (0.9-1.15); Partial Thromboplastin Time 29.1 sec (23.0-31.2)
[2020-05-27] MEDS ORDERED: hydrALAZINE HCL 20 MG/ML VL IV ONE (11:30)
[2020-05-27 11:59] LABS: Urine Bacteria NONE SEEN /hpf (None Seen); Urine Blood Negative /uL (Negative); Urine Specific Gravity 1.007 (1.001-1.035); Urine WBC 10 /hpf (0 - 3)
[2020-05-27 13:30] VITALS: BP 156/93
[2020-05-27] MEDS ORDERED: cefTRIAXone 1GM/50ML D5W 50 ML IV ONE (13:45)
[2020-05-28] MEDS ORDERED: ATOR40TA52 PO (17:44)
[2020-05-28] MEDS ORDERED: OMEP-260 PO (17:44)
[2020-05-28] MEDS ORDERED: ACET-1304 PO (17:45)
== END 2020-05-27 14:27 | disposition home or self-care (01) ==
LOC: ER 09:10
DX: I10 Essential (primary) hypertension (principal); E11.9 Type 2 diabetes mellitus without complications; K21.9 Gastro-esophageal reflux disease without esophagitis; E78.5 Hyperlipidemia, unspecified; Z79.82 Long term (current) use of aspirin; Z79.899 Other long term (current) drug therapy; Z88.5 Allergy status to narcotic agent
CPT/HCPCS: 36415; 71045; 80053; 81001; 83735; 84443; 84484; 85025; 85610; 85730; 96365; 96375; 99285; J0360; J0696; 93005

== ENCOUNTER 2020-05-28 15:17 | Inpatient (IN) | payer OTHER ==
[~2020-05-28] VITALS: Ht 172.7 cm; Wt 108.6 kg
[2020-05-28] MEDS ORDERED: ACETAMINOPHEN 325 MG TAB PO PRN (16:30)
[2020-05-28] MEDS ORDERED: LORazepam 0.5 MG TAB PO PRN (16:30)
[2020-05-28] MEDS ORDERED: HYDROcodone-ACET 5/325MG TAB PO PRN (16:30)
[2020-05-28] MEDS ORDERED: ONDANSETRON HCL 4 MG/2 ML VIAL IV PRN (16:30)
[2020-05-28] MEDS ORDERED: cloNIDine HCL 0.1 MG TAB PO PRN (16:30)
[2020-05-28] MEDS ORDERED: DEXTROSE (50%) 50ML SYRG IV PRN (16:30)
[2020-05-28] MEDS ORDERED: LOSARTAN POTASSIUM 50 MG TAB PO ONE (16:30)
[2020-05-28] MEDS ORDERED: FUROSEMIDE 40 MG/4 ML VIAL IV ONE (16:30)
[2020-05-28] MEDS ORDERED: NITROGLYCERIN 0.4 MG SL TAB SL PRN (16:30)
[2020-05-28] MEDS ORDERED: MORPHINE SULF INJ 2 MG/ML SYRINGE 1ML IV PRN (16:30)
--- NOTE | 2020-05-28 16:30 | NUR ---
CAME ON WC DIRECT ADMIT, RECEIVED PATIENT ALERT AND ORIENTED X4, NOT IN DISTRESS, CLEAR LS IN BILATERAL UPPER AND DIMINISHED IN LOWER LUNG LOBES, RR=18, SAT=93%, DEEP BREATHING AND COUGHING ENCOURAGED, VERBALIZED AND DEMONSTRATED WELL, SR ON TELE MONITOR HEART R=64, DENIED CHEST PAIN AND SOB, ABDOMEN SOFT AND ROUND WITH ACTIVE BS, LAST BM=TODAY REPORTED, BILATERAL LOWER EXTRADITES NONE PITTING EDEMA NOTED, GENERAL SKIN INTACT WARM TO TOUCH, RADIAL AND PEDAL PULSES PALPABLE, VS T=98.2 RR=18 SAT=93% P=61 YV=300/75, RESTING ON BED, HEAD OF BED ELEVATED, BED ON LOW POSITION, RAILS UP X2, CALL LIGHT ON REACH, PENDING PENDING CARDIAC CONSULT AND ECHO ORDERED, WILL CONTINUE MONITORING.
[2020-05-28 16:52] VITALS: BP 132/78
[2020-05-28] MEDS: ACCU-CHEK COMFORT CURVE STRIP VI SCH ×2 (17:00→22:00)
[2020-05-28] MEDS: InsuLIN REG 1unit/0.01ml Soln (100units/ml) SC SCH ×2 (17:00→22:00)
[2020-05-28 17:38] LABS: Basophils # (auto) 0.1 10 ^3/uL (0-0.2); Basophils % (auto) 0.9 % (0.0-2.0); Eosinophils # (auto) 0.3 10 ^3/uL (0-0.8); Eosinophils % (auto) 4.1 % (0.0-7.0); Hematocrit 43.9 % (41.0-53.0); Hemoglobin 14.3 g/dL (13.5-17.5); Lymphocytes # (auto) 1.9 10 ^3/uL (0.4-5.4); Lymphocytes % (auto) 26.5 % (10.0-50.0); Mean Corpuscular Hemoglobin 30.1 pg (28.0-32.0); Mean Corpuscular Hgb Conc. 32.5 g/dL (32.0-36.0); Mean Corpuscular Volume 92.4 fL (80.0-100.0); Monocytes # (auto) 0.8 10 ^3/uL (0-1.3); Monocytes % (auto) 11.4 % (0.0-12.0); Neutrophils % (auto) 57.1 % (37.0-80.0); Nucleated Red Blood Cells % 0.1 %; Platelet Count (auto) 196 10^3/uL (140-450); Red Blood Cells 4.76 10^6/uL (4.5-5.90); Red Cell Distribution Width 14.7 % (11.8-14.3); White Blood Cell 7.1 10^3/uL (4.4-10.8)
[2020-05-28] MEDS ORDERED: ATOR40TA52 PO (17:44)
[2020-05-28] MEDS ORDERED: OMEP-260 PO (17:44)
[2020-05-28] MEDS ORDERED: ACET-1304 PO (17:45)
[2020-05-28 17:53] LABS: INR 1.03 (0.9-1.15); Partial Thromboplastin Time 29.9 sec (23.0-31.2)
[2020-05-28 18:03] LABS: Albumin 3.5 g/dL (3.4-5.0); Anion Gap 3 (5-15); Blood Urea Nitrogen 26 mg/dL (7-18); Calcium 8.5 mg/dL (8.5-10.1); Carbon Dioxide 29 mmol/L (21-32); Chloride 105 mmol/L (98-107); Glucose 119 mg/dL (74-106); Magnesium 2.5 mg/dL (1.6-2.6); Potassium 4.1 mmol/L (3.5-5.1); Sodium 137 mmol/L (136-145)
[2020-05-28 18:09] LABS: Alanine Aminotransferase 16 U/L (16-61); Alkaline Phosphatase 89 U/L (45-117); Aspartate Aminotransferase 13 U/L (15-37); BUN/Creatinine Ratio 16.9; Bilirubin, Total 0.4 mg/dL (0.2-1.0); GFR African American 55 mL/min; GFR Non-African American 46 mL/min; Total Protein 7.3 g/dL (6.4-8.2)
[2020-05-28 18:25] LABS: Cholesterol 189 mg/dL (< 200); Triglycerides 257 mg/dL (< 150)
[2020-05-28 18:28] LABS: HDL Cholesterol 29 mg/dL (40-59); LDL Cholesterol 130 mg/dL (< 100)
[2020-05-28] MEDS: ALBUTEROL SULF 2.5 MG/0.5ML(0.5%) NEB SOLN NEB SCH (19:00)
[2020-05-28] MEDS: IPRATROPIUM BROM 0.5 MG/2.5ML INH SOL NEB SCH (19:00)
--- NOTE | 2020-05-28 19:20 | NUR ---
REPORT WAS GIVEN TO THE BEESWAX BLEACHER RN.
[2020-05-28 19:39] VITALS: BP 132/78
[2020-05-28] MEDS: SODIUM CHLOR 0.9% PF (SALINE LOCK) 10ML VIAL/SYR IV SCH (22:00)
[2020-05-28] MEDS: ATENOLOL 50 MG TAB PO SCH (22:00)
[2020-05-28 22:59] VITALS: BP 150/84
[2020-05-29] MEDS: IPRATROPIUM BROM 0.5 MG/2.5ML INH SOL NEB SCH ×4 (00:02→18:35)
[2020-05-29] MEDS: ALBUTEROL SULF 2.5 MG/0.5ML(0.5%) NEB SOLN NEB SCH ×4 (00:02→18:35)
[2020-05-29 05:00] VITALS: BP 133/65
[2020-05-29] MEDS: SODIUM CHLOR 0.9% PF (SALINE LOCK) 10ML VIAL/SYR IV SCH ×3 (06:00→21:46)
[2020-05-29] MEDS: FUROSEMIDE 40 MG/4 ML VIAL IV SCH ×2 (06:26→17:03)
[2020-05-29] MEDS: InsuLIN REG 1unit/0.01ml Soln (100units/ml) SC SCH ×4 (06:51→21:54)
[2020-05-29] MEDS: ACCU-CHEK COMFORT CURVE STRIP VI SCH ×4 (06:52→21:47)
--- NOTE | 2020-05-29 08:00 | NUR ---
RECEIVED PATIENT ALERT AND ORIENTED X4, NOT IN DISTRESS, DIMINISHED LS IN BILATERAL UPPER AND DIMINISHED IN LOWER LUNG LOBES, RR=18, DEEP BREATHING AND COUGHING ENCOURAGED, VERBALIZED AND DEMONSTRATED WELL, SR ON TELE MONITOR HEART R=72, DENIED CHEST PAIN AND SOB, ABDOMEN SOFT WITH ACTIVE BS, LAST BM=05/28/20 REPORTED, SKIN INTACT WARM TO TOUCH, RADIAL AND PEDAL PULSES PALPABLE, NONE PITTING EDEMA IN LOWER EXTREMITIES NOTED, RESTING ON BED, HEAD OF BED ELEVATED, BED ON LOWER POSITION, RAILS UP X2, CALL LIGHT ON REACH, WILL CONTINUE MONITORING.
[2020-05-29 09:00] VITALS: BP 111/64
[2020-05-29] MEDS: methylPREDNISolone SOD SUCC 125 MG/2 ML VL IV SCH ×2 (09:59→21:46)
[2020-05-29] MEDS: LOSARTAN POTASSIUM 50 MG TAB PO SCH (10:00)
[2020-05-29] MEDS: ATENOLOL 50 MG TAB PO SCH ×2 (10:01→21:46)
[2020-05-29] MEDS: AZITHROMYCIN 250 MG TAB PO SCH (10:01)
--- NOTE | 2020-05-29 12:00 | NUR ---
OFF OF O2 ORDERED, ENCOURAGED TO AMBULATE TOLERATED WELL, SAT=88-90% IN RA, EKG WAS DONE ORDERED, SHOWED SR, DR. FONTENOT WAS CONTACTED FOR FOLLOW UP AND TO REPORT THE RA SAT AND EKG RESULTS, WILL CONTINUE MONITORING.
[2020-05-29 13:00] VITALS: BP 148/88
[2020-05-29 17:00] VITALS: BP 123/80
--- NOTE | 2020-05-29 18:38 | NUR ---
RT NOTE PT WAS SEEN BY RT FOR HHN TX. PT TOLERATES WELL VIA MOUTHPIECE. NO ADVERSE REACTION NOTED. CONT ORDERED Addendum: 05/29/20 at 1840 by Joana Olivarez RT Amended: Links added.
--- NOTE | 2020-05-29 19:25 | NUR ---
REPORT WAS GIVEN TO THE PROCESS SAFETY ENGINEERING TECHNOLOGIST RN.
[2020-05-29 20:25] LABS: Urine Bacteria NONE SEEN /hpf (None Seen); Urine Blood Negative /uL (Negative); Urine Hyaline Cast FEW /lpf (0 - 2); Urine Specific Gravity 1.005 (1.001-1.035); Urine WBC 1 /hpf (0 - 3)
[2020-05-29 22:00] VITALS: BP 120/63
[2020-05-30] MEDS: IPRATROPIUM BROM 0.5 MG/2.5ML INH SOL NEB SCH ×3 (00:13→12:48)
[2020-05-30] MEDS: ALBUTEROL SULF 2.5 MG/0.5ML(0.5%) NEB SOLN NEB SCH ×3 (00:13→12:48)
--- NOTE | 2020-05-30 00:34 | NUR ---
RT NOTE PT WAS SEEN BY RT FOR HHN TX. PT TOLERATES WELL VIA MASK. NO ADVERSE REACTION NOTED. PT SLEPT THROUGH TX WELL Addendum: 05/30/20 at 0311 by Joana Olivarez RT Amended: Links added.
[2020-05-30 05:00] VITALS: BP 146/98
[2020-05-30] MEDS: SODIUM CHLOR 0.9% PF (SALINE LOCK) 10ML VIAL/SYR IV SCH (05:54)
[2020-05-30] MEDS: FUROSEMIDE 40 MG/4 ML VIAL IV SCH (05:54)
[2020-05-30] MEDS: ACCU-CHEK COMFORT CURVE STRIP VI SCH ×2 (05:54→11:30)
[2020-05-30] MEDS: InsuLIN REG 1unit/0.01ml Soln (100units/ml) SC SCH ×2 (05:59→11:30)
[2020-05-30 09:00] VITALS: BP 115/65
[2020-05-30] MEDS: AZITHROMYCIN 250 MG TAB PO SCH (11:19)
[2020-05-30] MEDS: ATENOLOL 50 MG TAB PO SCH (11:20)
[2020-05-30] MEDS: LOSARTAN POTASSIUM 50 MG TAB PO SCH (11:20)
[2020-05-30] MEDS: methylPREDNISolone SOD SUCC 125 MG/2 ML VL IV SCH (11:21)
[2020-05-30] MEDS ORDERED: ALB5IS NEB (11:22)
[2020-05-30] MEDS ORDERED: FURO1TAB33 PO (11:22)
[2020-05-30] MEDS ORDERED: POTA10TA51 PO (11:22)
[2020-05-30] MEDS ORDERED: PRE1T PO (11:22)
[2020-05-30 13:00] VITALS: BP 98/74
--- NOTE | 2020-05-30 14:23 | NUR ---
Assessment Patient is an 89-year-old male who is alert and oriented. Patient primary language is Finnish. Prior to admission patient lived home with his Patricia and functioned independently. Patient can care for his own ADLs. Per patient he has a walker, cane, and wheelchair at home but does not use it at the time. Patient informed me he can function without any medical equipment. Per patient he will return home to his prior living arrangements post discharge and his will transport him home. Patient informed me he feels safe at home. Advised patient there is a social service consult for home oxygen at 3 l/min. Informed patient clinical information will be faxed to and health plan. Informed patient portable oxygen will be deliver to bed side and concentrate oxygen to home. Informed patient he has the right to participate in all discharge planning. Patient verbalized understanding and agreed to discharge plan home. Clinical information was reviewed and approved by [facility]. Faxed clinical information to at 12:38 and [employer] at 13:25. Placed call to at 14:21, spoke to Jenn. Per Jenn order is being reviewed and she will contact me with an ETA. Addendum: 05/30/20 at 1424 by LILI MCELROY Amended: Links added.
--- NOTE | 2020-05-30 16:06 | NUR ---
D/C Planning Placed follow up called to [facility], Spoke to Pinky. Per Pinky portable oxygen will be deliver to bedside between 16:30- 18:30 and concentrate oxygen to home. DANIEL Groves was informed.
[2020-05-30 16:17] VITALS: BP 115/65
[2020-05-30 17:00] VITALS: BP 132/77
== END 2020-05-30 18:15 | disposition home or self-care (01) | DRG 291 ==
LOC: TELE-WESTW 15:30
PROVIDERS: ADMIT Internal Medicine; ATTEND Internal Medicine Pulmonary Disease
DX: I11.0 Hypertensive heart disease with heart failure (principal); J96.01 Acute respiratory failure with hypoxia; I50.31 Acute diastolic (congestive) heart failure; J98.11 Atelectasis; E66.01 Morbid (severe) obesity due to excess calories; E11.21 Type 2 diabetes mellitus with diabetic nephropathy; E11.51 Type 2 diabetes mellitus with diabetic peripheral angiopathy without gangrene; E11.40 Type 2 diabetes mellitus with diabetic neuropathy, unspecified; M25.78 Osteophyte, vertebrae; E78.5 Hyperlipidemia, unspecified; Z79.84 Long term (current) use of oral hypoglycemic drugs; Z68.36 Body mass index [BMI] 36.0-36.9, adult; Z87.891 Personal history of nicotine dependence; Z82.49 Family history of ischemic heart disease and other diseases of the circulatory system; Z88.6 Allergy status to analgesic agent; Z79.899 Other long term (current) drug therapy
CPT/HCPCS: 36415; 36600; 71250; 80053; 80061; 81001; 82805; 82962; 83036; 83735; 83880; 84484; 85025; 85379; 85610; 85730; 87081; 93970; 94640; G0378; J1815

== ENCOUNTER → 2020-07-04 | Outpatient (CLI) | payer OTHER ==
[~2020-07-04] MED LIST changes: +ACET-1304 PO; +ALB5IS NEB; +ALBUTEROL SULF 2.5 MG/0.5ML(0.5%) NEB SOLN ONE; -ASPI-543 PO; +ATOR40TA52 PO; +FURO1TAB33 PO; -LOSA25TA38 PO; +OMEP-260 PO; +POTA10TA51 PO
== END | disposition home or self-care (01) ==
LOC: RT 08:51
PROVIDERS: ATTEND Internal Medicine Pulmonary Disease
DX: R06.00 Dyspnea, unspecified (principal)
CPT/HCPCS: 94060; 94618; 94727; 94729

== ENCOUNTER → 2021-01-14 | Outpatient (CLI) | payer OTHER ==
[~2021-01-14] MED LIST changes: -ALBUTEROL SULF 2.5 MG/0.5ML(0.5%) NEB SOLN ONE
[2021-01-14 08:46] LABS: Basophils # (auto) 0.1 10 ^3/uL (0-0.2); Basophils % (auto) 0.8 % (0.0-2.0); Eosinophils # (auto) 0.3 10 ^3/uL (0-0.8); Eosinophils % (auto) 4.9 % (0.0-7.0); Hematocrit 42.2 % (41.0-53.0); Lymphocytes # (auto) 1.6 10 ^3/uL (0.4-5.4); Mean Corpuscular Hemoglobin 30.9 pg (28.0-32.0); Mean Corpuscular Hgb Conc. 33.1 g/dL (32.0-36.0); Mean Corpuscular Volume 93.3 fL (80.0-100.0); Monocytes # (auto) 0.7 10 ^3/uL (0-1.3); Neutrophils # (auto) 3.6 10 ^3/uL (1.6-8.6); Neutrophils % (auto) 58.3 % (37.0-80.0); Platelet Count (auto) 214 10^3/uL (140-450); Red Blood Cells 4.52 10^6/uL (4.5-5.90); Red Cell Distribution Width 14.6 % (11.8-14.3); White Blood Cell 6.2 10^3/uL (4.4-10.8)
[2021-01-14 09:20] LABS: Potassium 4.6 mmol/L (3.5-5.1)
[2021-01-14 09:28] LABS: BUN/Creatinine Ratio 19.5; Calcium 8.8 mg/dL (8.5-10.1)
== END | disposition home or self-care (01) ==
LOC: LAB 07:59
PROVIDERS: ATTEND Internal Medicine
DX: E11.22 Type 2 diabetes mellitus with diabetic chronic kidney disease (principal); N18.9 Chronic kidney disease, unspecified; N40.0 Benign prostatic hyperplasia without lower urinary tract symptoms
CPT/HCPCS: 36415; 80048; 83036; 84153; 84154; 85025

== ENCOUNTER 2021-04-28 12:30 | Outpatient (CLI) | payer OTHER ==
[~2021-04-28] VITALS: Ht 172.7 cm; Wt 108.9 kg
[2021-04-28 13:07] LABS: Basophils # (auto) 0.1 10 ^3/uL (0-0.2); Basophils % (auto) 0.8 % (0.0-2.0); Eosinophils # (auto) 0.3 10 ^3/uL (0-0.8); Eosinophils % (auto) 4.2 % (0.0-7.0); Hematocrit 43.4 % (41.0-53.0); Hemoglobin 14.7 g/dL (13.5-17.5); Lymphocytes # (auto) 1.5 10 ^3/uL (0.4-5.4); Lymphocytes % (auto) 23.9 % (10.0-50.0); Mean Corpuscular Hemoglobin 30.8 pg (28.0-32.0); Mean Corpuscular Hgb Conc. 33.9 g/dL (32.0-36.0); Monocytes # (auto) 0.7 10 ^3/uL (0-1.3); Monocytes % (auto) 11.9 % (0.0-12.0); Neutrophils # (auto) 3.6 10 ^3/uL (1.6-8.6); Neutrophils % (auto) 59.2 % (37.0-80.0); Nucleated Red Blood Cells % 0.1 %; Red Blood Cells 4.77 10^6/uL (4.5-5.90); Red Cell Distribution Width 14.3 % (11.8-14.3); White Blood Cell 6.1 10^3/uL (4.4-10.8)
[2021-04-28 13:15] LABS: Urine Bacteria FEW /hpf (None Seen); Urine Blood Negative /uL (Negative); Urine Hyaline Cast FEW /lpf (0 - 2); Urine Specific Gravity 1.016 (1.001-1.035); Urine WBC 16 /hpf (0 - 3)
[2021-04-28 13:17] LABS: INR 1.02 (0.9-1.15); Partial Thromboplastin Time 30.2 sec (23.0-31.2)
[2021-04-28 13:27] LABS: Albumin 3.4 g/dL (3.4-5.0); Calcium 7.9 mg/dL (8.5-10.1); Potassium 4.5 mmol/L (3.5-5.1)
[2021-04-28 13:32] LABS: BUN/Creatinine Ratio 15.8; Bilirubin, Total 0.4 mg/dL (0.2-1.0); Total Protein 7.4 g/dL (6.4-8.2)
[2021-04-28] MEDS ORDERED: PRED2.5T4 PO (15:20)
== END 2021-04-28 12:51 | disposition home or self-care (01) ==
LOC: LAB 12:30 → GI 05-01 09:21 → EDSTATUS 05-01 13:05
PROVIDERS: ATTEND Internal Medicine Gastroenterology
DX: Z01.812 Encounter for preprocedural laboratory examination (principal); Z20.822 Contact with and (suspected) exposure to COVID-19; K92.1 Melena; R19.5 Other fecal abnormalities; R10.13 Epigastric pain; Z98.890 Other specified postprocedural states; Z88.8 Allergy status to other drugs, medicaments and biological substances; Z68.36 Body mass index [BMI] 36.0-36.9, adult; Z80.8 Family history of malignant neoplasm of other organs or systems; Z53.8 Procedure and treatment not carried out for other reasons
CPT/HCPCS: 36415; 80053; 81001; 85025; 85610; 85730; U0003

== ENCOUNTER 2021-06-08 17:15 | Inpatient (IN) | payer OTHER ==
[~2021-06-08] VITALS: Ht 172.7 cm; Wt 100.0 kg
[~2021-06-08 17:15] MED LIST changes: +PRED2.5T4 PO
[2021-06-08] MEDS ORDERED: ASPirin 325 MG TAB PO ONE (18:45)
[2021-06-08] MEDS ORDERED: FAMOTIDINE (10MG/ML) 2ML VL IV ONE ×2 (18:45→22:15)
[2021-06-08] MEDS ORDERED: FUROSEMIDE 40 MG/4 ML VIAL IV ONE (18:45)
[2021-06-08 19:05] LABS: Basophils # (auto) 0.1 10 ^3/uL (0-0.2); Basophils % (auto) 0.7 % (0.0-2.0); Eosinophils # (auto) 0.2 10 ^3/uL (0-0.8); Eosinophils % (auto) 2.2 % (0.0-7.0); Hematocrit 45.9 % (41.0-53.0); Hemoglobin 14.8 g/dL (13.5-17.5); Lymphocytes # (auto) 1.2 10 ^3/uL (0.4-5.4); Lymphocytes % (auto) 14.7 % (10.0-50.0); Mean Corpuscular Hemoglobin 29.4 pg (28.0-32.0); Mean Corpuscular Hgb Conc. 32.2 g/dL (32.0-36.0); Mean Corpuscular Volume 91.4 fL (80.0-100.0); Monocytes # (auto) 0.7 10 ^3/uL (0-1.3); Neutrophils # (auto) 5.8 10 ^3/uL (1.6-8.6); Neutrophils % (auto) 73.4 % (37.0-80.0); Nucleated Red Blood Cells % 0.2 %; Red Blood Cells 5.02 10^6/uL (4.5-5.90); Red Cell Distribution Width 15.9 % (11.8-14.3)
[2021-06-08 19:20] LABS: Anion Gap 5 (5-15); Blood Urea Nitrogen 23 mg/dL (7-18); Calcium 8.3 mg/dL (8.5-10.1); Carbon Dioxide 27 mmol/L (21-32); Chloride 106 mmol/L (98-107); Glucose 130 mg/dL (74-106); Potassium 4.6 mmol/L (3.5-5.1); Sodium 138 mmol/L (136-145)
[2021-06-08 19:22] LABS: BUN/Creatinine Ratio 15.8; GFR African American 58 mL/min; GFR Non-African American 48 mL/min
[2021-06-08 19:27] LABS: Alanine Aminotransferase 48 U/L (16-61); Alkaline Phosphatase 77 U/L (45-117); Aspartate Aminotransferase 38 U/L (15-37); Bilirubin, Total 0.3 mg/dL (0.2-1.0); Total Protein 7.1 g/dL (6.4-8.2)
[2021-06-08] MEDS ORDERED: methylPREDNISolone SOD SUCC 125 MG/2 ML VL IV ONE (19:30)
[2021-06-08 19:39] LABS: Magnesium 2.3 mg/dL (1.6-2.6)
[2021-06-08] MEDS ORDERED: NITROGLYCERIN 0.4 MG SL TAB SL PRN ×3 (20:45→22:15)
[2021-06-08] MEDS ORDERED: MORPHINE SULFATE INJECTION 2 MG/2 ML SYRG IV PRN ×3 (20:45→22:15)
[2021-06-08] MEDS ORDERED: ALUM & MAG HYDROX-SIMETH LIQ(MAALOX) 30 ML PO PRN (22:15)
[2021-06-08] MEDS ORDERED: IPRATROPIUM BROM 0.5 MG/2.5ML INH SOL NEB PRN (22:15)
[2021-06-08] MEDS ORDERED: ONDANSETRON HCL 4 MG/2 ML VIAL IV PRN (22:15)
[2021-06-08] MEDS ORDERED: DOCUSATE SOD 100 MG CAP PO PRN (22:15)
[2021-06-08] MEDS ORDERED: METOPROLOL SUCCINATE XL 50 MG TAB PO ONE (22:15)
[2021-06-08] MEDS ORDERED: DEXTROSE (50%) 50ML SYRG IV PRN (22:15)
[2021-06-08] MEDS ORDERED: hydrALAZINE HCL 20 MG/ML VL IV PRN (22:15)
[2021-06-08 22:27] VITALS: BP 136/69
[2021-06-08 23:26] LABS: INR 1.1 (0.9-1.15)
[2021-06-09] MEDS ORDERED: IPRATROPIUM BROM 0.5 MG/2.5ML INH SOL NEB SCH (02:00)
[2021-06-09] MEDS: SODIUM CHLOR 0.9% PF (SALINE LOCK) 10ML VIAL/SYR IV SCH ×3 (06:00→23:00)
[2021-06-09] MEDS: ACCU-CHEK COMFORT CURVE STRIP VI SCH ×4 (06:57→21:42)
[2021-06-09] MEDS: InsuLIN REG 1unit/0.01ml Soln (100units/ml) SC SCH ×4 (07:00→21:41)
[2021-06-09] MEDS: FUROSEMIDE 20 MG/2 ML VIAL IV SCH ×2 (07:46→18:04)
[2021-06-09] MEDS ORDERED: ALBUTEROL SULF 2.5 MG/0.5ML(0.5%) NEB SOLN NEB PRN (09:00)
[2021-06-09] MEDS ORDERED: IPRATROPIUM BROM 0.5 MG/2.5ML INH SOL NEB PRN (09:00)
[2021-06-09] MEDS: FAMOTIDINE (10MG/ML) 2ML VL IV SCH ×2 (09:29→23:00)
[2021-06-09] MEDS: ASPirin 81 mg TAB PO SCH (09:29)
[2021-06-09] MEDS: methylPREDNISolone SOD SUCC 125 MG/2 ML VL IV SCH ×2 (09:29→23:00)
[2021-06-09] MEDS: METOPROLOL SUCCINATE XL 50 MG TAB PO SCH (09:29)
[2021-06-09 09:47] LABS: Urine WBC None Seen /hpf (0 - 3)
[2021-06-09 09:58] LABS: Urine Bacteria FEW /hpf (None Seen); Urine Blood Negative /uL (Negative); Urine Specific Gravity 1.007 (1.001-1.035)
[2021-06-09 10:09] LABS: Alcohol, Urine < 3.0 mg/dL (0-10); Amphetamine Screen, Urine NEGATIVE (NEGATIVE); Barbiturate Scree,Urine NEGATIVE (NEGATIVE); Benzodiazephine Screen, Urine NEGATIVE (NEGATIVE); Cannabinoid Screen, Urine NEGATIVE (NEGATIVE); Cocaine Screen, Urine NEGATIVE (NEGATIVE); Opiate Scree,Urine NEGATIVE (NEGATIVE); Phencyclidine Screen, Urine NEGATIVE (NEGATIVE)
[2021-06-09] MEDS: INSULIN LANTUS (GLARGINE) 1 /0.01ml (100units/ml) SC SCH ×2 (11:18→21:42)
[2021-06-09 12:00] VITALS: BP 139/99
[2021-06-09 17:10] VITALS: BP 141/80
[2021-06-09 22:00] VITALS: BP 131/72
[2021-06-09] MEDS: ATORVASTATIN 20 MG TAB PO SCH (23:00)
[2021-06-10 06:00] VITALS: BP 131/75
[2021-06-10] MEDS: SODIUM CHLOR 0.9% PF (SALINE LOCK) 10ML VIAL/SYR IV SCH ×3 (06:01→21:18)
[2021-06-10] MEDS: ACCU-CHEK COMFORT CURVE STRIP VI SCH ×4 (06:26→21:17)
[2021-06-10] MEDS: FUROSEMIDE 20 MG/2 ML VIAL IV SCH ×2 (06:26→17:24)
[2021-06-10] MEDS: InsuLIN REG 1unit/0.01ml Soln (100units/ml) SC SCH ×4 (06:28→21:16)
[2021-06-10 07:41] LABS: BUN/Creatinine Ratio 25.3; Calcium 8.3 mg/dL (8.5-10.1); Magnesium 2.5 mg/dL (1.6-2.6); Potassium 4.9 mmol/L (3.5-5.1)
[2021-06-10 09:00] VITALS: BP 124/53
[2021-06-10] MEDS: INSULIN LANTUS (GLARGINE) 1 /0.01ml (100units/ml) SC SCH ×2 (11:22→21:17)
[2021-06-10] MEDS: ASPirin 81 mg TAB PO SCH (11:24)
[2021-06-10] MEDS: METOPROLOL SUCCINATE XL 50 MG TAB PO SCH (11:24)
[2021-06-10] MEDS: FAMOTIDINE (10MG/ML) 2ML VL IV SCH ×2 (11:25→21:18)
[2021-06-10] MEDS: methylPREDNISolone SOD SUCC 125 MG/2 ML VL IV SCH ×2 (11:25→21:16)
[2021-06-10 12:36] VITALS: BP 140/76
[2021-06-10 16:57] VITALS: BP 139/87
[2021-06-10] MEDS: ATORVASTATIN 20 MG TAB PO SCH (21:17)
[2021-06-10 22:00] VITALS: BP 141/87
[2021-06-11 05:00] VITALS: BP 160/96
[2021-06-11] MEDS: ACCU-CHEK COMFORT CURVE STRIP VI SCH ×3 (06:47→17:17)
[2021-06-11] MEDS: FUROSEMIDE 20 MG/2 ML VIAL IV SCH ×2 (06:47→17:29)
[2021-06-11] MEDS: InsuLIN REG 1unit/0.01ml Soln (100units/ml) SC SCH ×3 (06:47→17:25)
[2021-06-11] MEDS: SODIUM CHLOR 0.9% PF (SALINE LOCK) 10ML VIAL/SYR IV SCH ×2 (06:47→15:23)
[2021-06-11 06:58] LABS: BUN/Creatinine Ratio 26.6; Calcium 8.4 mg/dL (8.5-10.1); Potassium 4.4 mmol/L (3.5-5.1)
[2021-06-11 09:00] VITALS: BP 144/92
[2021-06-11] MEDS: FAMOTIDINE (10MG/ML) 2ML VL IV SCH (10:14)
[2021-06-11] MEDS: methylPREDNISolone SOD SUCC 125 MG/2 ML VL IV SCH (10:14)
[2021-06-11] MEDS: ASPirin 81 mg TAB PO SCH (10:15)
[2021-06-11] MEDS: METOPROLOL SUCCINATE XL 50 MG TAB PO SCH (10:16)
[2021-06-11] MEDS: INSULIN LANTUS (GLARGINE) 1 /0.01ml (100units/ml) SC SCH (10:36)
[2021-06-11 13:00] VITALS: BP 145/92
[2021-06-11 17:00] VITALS: BP 136/84
[2021-06-11 18:11] VITALS: BP 136/84
== END 2021-06-11 19:05 | disposition home or self-care (01) | DRG 291 ==
LOC: ER 17:15 → TELE 20:31 → TELE-CENTR 06-09 08:58
PROVIDERS: ADMIT Hospitalist; ATTEND Internal Medicine
DX: I13.0 Hypertensive heart and chronic kidney disease with heart failure and stage 1 through stage 4 chronic kidney disease, or unspecified chronic kidney disease (principal); J96.21 Acute and chronic respiratory failure with hypoxia; I50.33 Acute on chronic diastolic (congestive) heart failure; J44.1 Chronic obstructive pulmonary disease with (acute) exacerbation; I16.9 Hypertensive crisis, unspecified; N17.9 Acute kidney failure, unspecified; Z20.822 Contact with and (suspected) exposure to COVID-19; E66.01 Morbid (severe) obesity due to excess calories; K29.70 Gastritis, unspecified, without bleeding; K21.9 Gastro-esophageal reflux disease without esophagitis; K59.04 Chronic idiopathic constipation; E11.22 Type 2 diabetes mellitus with diabetic chronic kidney disease; E78.5 Hyperlipidemia, unspecified; G47.33 Obstructive sleep apnea (adult) (pediatric); N18.31 Chronic kidney disease, stage 3a; Z79.899 Other long term (current) drug therapy; Z82.49 Family history of ischemic heart disease and other diseases of the circulatory system; Z87.891 Personal history of nicotine dependence; Z68.33 Body mass index [BMI] 33.0-33.9, adult; Z88.8 Allergy status to other drugs, medicaments and biological substances
CPT/HCPCS: 36415; 36600; 71045; 80048; 80053; 80307; 81001; 82805; 82962; 83036; 83690; 83735; 83880; 84484; 85025; 85610; 87040; 87086; 87426; 93005; 96374; 96375; 96376; 97163; G0378; J1815; J3490

== ENCOUNTER 2021-07-24 07:46 | Inpatient (IN) | payer OTHER ==
[~2021-07-24] VITALS: Ht 167.6 cm; Wt 105.2 kg
[2021-07-24 08:23] LABS: Basophils # (auto) 0.1 10 ^3/uL (0-0.2); Basophils % (auto) 0.6 % (0.0-2.0); Eosinophils # (auto) 0.1 10 ^3/uL (0-0.8); Eosinophils % (auto) 0.9 % (0.0-7.0); Hematocrit 47.3 % (41.0-53.0); Hemoglobin 14.9 g/dL (13.5-17.5); Lymphocytes # (auto) 1.1 10 ^3/uL (0.4-5.4); Lymphocytes % (auto) 13.1 % (10.0-50.0); Mean Corpuscular Hemoglobin 28.7 pg (28.0-32.0); Mean Corpuscular Hgb Conc. 31.6 g/dL (32.0-36.0); Mean Corpuscular Volume 90.8 fL (80.0-100.0); Monocytes # (auto) 0.8 10 ^3/uL (0-1.3); Monocytes % (auto) 8.6 % (0.0-12.0); Neutrophils # (auto) 6.7 10 ^3/uL (1.6-8.6); Neutrophils % (auto) 76.8 % (37.0-80.0); Nucleated Red Blood Cells % 0.1 %; Red Blood Cells 5.21 10^6/uL (4.5-5.90); Red Cell Distribution Width 16.6 % (11.8-14.3); White Blood Cell 8.7 10^3/uL (4.4-10.8)
[2021-07-24] MEDS ORDERED: FUROSEMIDE 40 MG/4 ML VIAL IV ONE ×2 (08:30→14:45)
[2021-07-24 08:42] LABS: Albumin 2.9 g/dL (3.4-5.0); Anion Gap 7 (5-15); Blood Urea Nitrogen 18 mg/dL (7-18); Calcium 8.3 mg/dL (8.5-10.1); Carbon Dioxide 30 mmol/L (21-32); Chloride 101 mmol/L (98-107); Glucose 191 mg/dL (74-106); Potassium 4.6 mmol/L (3.5-5.1); Sodium 138 mmol/L (136-145)
[2021-07-24 08:43] LABS: INR 1.21 (0.9-1.15); Partial Thromboplastin Time 32.1 sec (23.6-33.0)
[2021-07-24 08:46] LABS: Alanine Aminotransferase 38 U/L (16-61); Alkaline Phosphatase 63 U/L (45-117); Aspartate Aminotransferase 34 U/L (15-37); Bilirubin, Total 0.9 mg/dL (0.2-1.0); GFR African American 51 mL/min; GFR Non-African American 43 mL/min; Total Protein 6.8 g/dL (6.4-8.2)
[2021-07-24] MEDS ORDERED: MORPHINE SULFATE INJECTION 2 MG/ML SYRG IV PRN (14:45)
[2021-07-24] MEDS ORDERED: NITROGLYCERIN 0.4 MG SL TAB SL PRN (14:45)
[2021-07-24] MEDS ORDERED: ISOSORBIDE MONONITRATE IR 20 MG TAB PO ONE (14:45)
[2021-07-24] MEDS ORDERED: ENOXAPARIN SOD 100 MG/1 ML SYRINGE SC ONE (16:30)
[2021-07-24] MEDS ORDERED: PANTOPRAZOLE 40 MG TAB PO ONE (16:30)
[2021-07-24] MEDS: FUROSEMIDE 40 MG/4 ML VIAL IV SCH (17:47)
[2021-07-24] MEDS: ATORVASTATIN 20 MG TAB PO SCH (22:00)
[2021-07-24] MEDS: METOPROLOL TARTRATE 25 MG TAB PO SCH (22:00)
[2021-07-24 22:10] VITALS: BP 94/53
[2021-07-25] MEDS ORDERED: LACTULOSE 20Gm/30ML SOLN PO SCH (02:00)
[2021-07-25] MEDS ORDERED: ENOXAPARIN SOD 100 MG/1 ML SYRINGE SC SCH (04:00)
[2021-07-25 04:30] VITALS: BP 112/44
[2021-07-25] MEDS: FUROSEMIDE 40 MG/4 ML VIAL IV SCH (06:23)
[2021-07-25 09:00] VITALS: BP 132/75
[2021-07-25] MEDS ORDERED: REGADENOSON 0.4 MG/5 ML SYRG IV ONE (09:30)
[2021-07-25] MEDS ORDERED: LORazepam 0.5 MG TAB PO PRN (10:30)
[2021-07-25] MEDS ORDERED: ACETAMINOPHEN 325 MG TAB PO PRN (10:30)
[2021-07-25] MEDS ORDERED: HYDROcodone-ACET 5/325MG TAB PO PRN (10:30)
[2021-07-25] MEDS ORDERED: cefTRIAXone 1GM/50ML D5W 50 ML IV ONE (10:30)
[2021-07-25] MEDS ORDERED: DOCUSATE SOD 100 MG CAP PO PRN (10:30)
[2021-07-25] MEDS ORDERED: ONDANSETRON HCL 4 MG/2 ML VIAL IV PRN (10:30)
[2021-07-25] MEDS ORDERED: guaiFENesin-DM 100/10mg/5ml SYR PO ONE (10:30)
[2021-07-25] MEDS ORDERED: NITROGLYCERIN 0.4 MG SL TAB SL PRN (10:30)
[2021-07-25] MEDS ORDERED: MORPHINE SULFATE INJECTION 2 MG/ML SYRG IV PRN ×3 (10:30→12:00)
[2021-07-25] MEDS ORDERED: guaiFENesin-DM 100/10mg/5ml SYR PO PRN (10:30)
[2021-07-25] MEDS ORDERED: ALUM & MAG HYDROX-SIMETH LIQ(MAALOX) 30 ML PO PRN (10:30)
[2021-07-25] MEDS ORDERED: DEXTROSE (50%) 50ML SYRG IV PRN (12:00)
[2021-07-25] MEDS ORDERED: AZITHROMYCIN 500MG/ 250ML 250 ML IV ONE (12:00)
[2021-07-25] MEDS: ASPirin 81 mg TAB PO SCH (12:08)
[2021-07-25] MEDS: METOPROLOL TARTRATE 25 MG TAB PO SCH ×2 (12:08→23:09)
[2021-07-25] MEDS: PANTOPRAZOLE 40 MG TAB PO SCH (12:09)
[2021-07-25] MEDS: ENOXAPARIN SOD 40 MG/0.4 ML SYRINGE SC SCH (12:50)
[2021-07-25] MEDS: SODIUM CHLOR 0.9% PF (SALINE LOCK) 10ML VIAL/SYR IV SCH ×2 (12:51→23:06)
[2021-07-25 13:00] VITALS: BP 115/64
[2021-07-25 13:51] VITALS: BP 132/75
[2021-07-25 14:21] LABS: Urine WBC None Seen /hpf (0 - 3)
[2021-07-25 14:39] LABS: Urine Bacteria NONE SEEN /hpf (None Seen); Urine Blood Negative /uL (Negative); Urine Hyaline Cast FEW /lpf (0 - 2); Urine Specific Gravity 1.009 (1.001-1.035)
[2021-07-25] MEDS: IPRATROPIUM BROM 0.5 MG/2.5ML INH SOL NEB SCH ×4 (14:42→23:13)
[2021-07-25 14:50] LABS: Amphetamine Screen, Urine NEGATIVE (NEGATIVE); Barbiturate Scree,Urine NEGATIVE (NEGATIVE); Benzodiazephine Screen, Urine NEGATIVE (NEGATIVE); Cannabinoid Screen, Urine NEGATIVE (NEGATIVE); Cocaine Screen, Urine NEGATIVE (NEGATIVE); Opiate Scree,Urine NEGATIVE (NEGATIVE); Phencyclidine Screen, Urine NEGATIVE (NEGATIVE)
[2021-07-25 17:00] VITALS: BP 131/77
[2021-07-25] MEDS: InsuLIN REG 1unit/0.01ml Soln (100units/ml) SC SCH ×2 (17:00→23:06)
[2021-07-25] MEDS: ACCU-CHEK COMFORT CURVE STRIP VI SCH ×2 (17:09→23:06)
[2021-07-25 22:00] VITALS: BP 120/66
[2021-07-25] MEDS: ATORVASTATIN 20 MG TAB PO SCH (23:09)
[2021-07-26] MEDS: IPRATROPIUM BROM 0.5 MG/2.5ML INH SOL NEB SCH ×6 (06:00→22:36)
[2021-07-26] MEDS: ACCU-CHEK COMFORT CURVE STRIP VI SCH ×4 (06:10→22:27)
[2021-07-26] MEDS: SODIUM CHLOR 0.9% PF (SALINE LOCK) 10ML VIAL/SYR IV SCH ×3 (06:10→22:16)
[2021-07-26 06:13] LABS: BUN/Creatinine Ratio 17.1; Calcium 8.8 mg/dL (8.5-10.1)
[2021-07-26] MEDS: InsuLIN REG 1unit/0.01ml Soln (100units/ml) SC SCH ×4 (06:13→22:28)
[2021-07-26] MEDS: FUROSEMIDE 40 MG/4 ML VIAL IV SCH (06:13)
[2021-07-26 09:00] VITALS: BP 100/87
[2021-07-26] MEDS: cefTRIAXone 1GM/50ML D5W 50 ML IV SCH (09:00)
[2021-07-26] MEDS: PANTOPRAZOLE 40 MG TAB PO SCH (10:00)
[2021-07-26] MEDS: AZITHROMYCIN 500MG/ 250ML 250 ML IV SCH (10:00)
[2021-07-26] MEDS: ENOXAPARIN SOD 40 MG/0.4 ML SYRINGE SC SCH (10:00)
[2021-07-26] MEDS: METOPROLOL TARTRATE 25 MG TAB PO SCH ×3 (10:00→23:28)
[2021-07-26] MEDS: ASPirin 81 mg TAB PO SCH (10:00)
[2021-07-26 13:00] VITALS: BP 130/78
[2021-07-26 17:00] VITALS: BP 149/93
[2021-07-26] MEDS ORDERED: TEMAZEPAM 15 MG CAP PO ONE (21:45)
[2021-07-26 22:00] VITALS: BP 121/74
[2021-07-26] MEDS: ATORVASTATIN 20 MG TAB PO SCH (22:27)
[2021-07-27] MEDS: IPRATROPIUM BROM 0.5 MG/2.5ML INH SOL NEB SCH ×5 (02:21→22:48)
[2021-07-27 05:00] VITALS: BP 134/82
[2021-07-27] MEDS: SODIUM CHLOR 0.9% PF (SALINE LOCK) 10ML VIAL/SYR IV SCH ×3 (05:58→22:19)
[2021-07-27] MEDS: ACCU-CHEK COMFORT CURVE STRIP VI SCH ×4 (05:58→22:10)
[2021-07-27] MEDS: InsuLIN REG 1unit/0.01ml Soln (100units/ml) SC SCH ×4 (06:01→22:18)
[2021-07-27] MEDS: FUROSEMIDE 40 MG/4 ML VIAL IV SCH (06:02)
[2021-07-27 07:06] LABS: Potassium 3.9 mmol/L (3.5-5.1)
[2021-07-27 07:21] LABS: BUN/Creatinine Ratio 18.5; Calcium 8.9 mg/dL (8.5-10.1)
[2021-07-27 09:00] VITALS: BP 112/61
[2021-07-27] MEDS: cefTRIAXone 1GM/50ML D5W 50 ML IV SCH (09:00)
[2021-07-27] MEDS: PANTOPRAZOLE 40 MG TAB PO SCH (10:00)
[2021-07-27] MEDS: ASPirin 81 mg TAB PO SCH (10:00)
[2021-07-27] MEDS: ENOXAPARIN SOD 40 MG/0.4 ML SYRINGE SC SCH (10:00)
[2021-07-27] MEDS: METOPROLOL TARTRATE 25 MG TAB PO SCH ×2 (10:00→22:19)
[2021-07-27] MEDS: AZITHROMYCIN 500MG/ 250ML 250 ML IV SCH (11:24)
[2021-07-27 13:00] VITALS: BP 99/43
[2021-07-27 17:00] VITALS: BP 112/61
[2021-07-27 22:00] VITALS: BP 117/72
[2021-07-27] MEDS: ATORVASTATIN 20 MG TAB PO SCH (22:19)
[2021-07-27] MEDS ORDERED: IPRATROPIUM BROM 0.5 MG/2.5ML INH SOL NEB PRN (23:45)
[2021-07-28 05:00] VITALS: BP 158/79
[2021-07-28] MEDS: SODIUM CHLOR 0.9% PF (SALINE LOCK) 10ML VIAL/SYR IV SCH ×2 (05:20→14:21)
[2021-07-28] MEDS: ACCU-CHEK COMFORT CURVE STRIP VI SCH ×2 (05:20→11:30)
[2021-07-28] MEDS: FUROSEMIDE 40 MG/4 ML VIAL IV SCH (05:21)
[2021-07-28] MEDS: InsuLIN REG 1unit/0.01ml Soln (100units/ml) SC SCH ×2 (05:21→12:17)
[2021-07-28 05:30] LABS: Basophils # (auto) 0 10 ^3/uL (0-0.2); Basophils % (auto) 0.8 % (0.0-2.0); Eosinophils # (auto) 0.3 10 ^3/uL (0-0.8); Hematocrit 43.7 % (41.0-53.0); Hemoglobin 14.2 g/dL (13.5-17.5); Lymphocytes % (auto) 18.8 % (10.0-50.0); Mean Corpuscular Hemoglobin 29.2 pg (28.0-32.0); Mean Corpuscular Hgb Conc. 32.4 g/dL (32.0-36.0); Mean Corpuscular Volume 90.2 fL (80.0-100.0); Monocytes # (auto) 0.6 10 ^3/uL (0-1.3); Monocytes % (auto) 10.8 % (0.0-12.0); Neutrophils # (auto) 3.5 10 ^3/uL (1.6-8.6); Neutrophils % (auto) 64.6 % (37.0-80.0); Red Blood Cells 4.85 10^6/uL (4.5-5.90); Red Cell Distribution Width 16.3 % (11.8-14.3); White Blood Cell 5.4 10^3/uL (4.4-10.8)
[2021-07-28 05:55] LABS: Albumin 2.7 g/dL (3.4-5.0); Anion Gap 2 (5-15); Blood Urea Nitrogen 26 mg/dL (7-18); Calcium 8.4 mg/dL (8.5-10.1); Carbon Dioxide 37 mmol/L (21-32); Chloride 100 mmol/L (98-107); Glucose 109 mg/dL (74-106); Magnesium 2.6 mg/dL (1.6-2.6); Potassium 3.8 mmol/L (3.5-5.1); Sodium 139 mmol/L (136-145)
[2021-07-28 06:01] LABS: Alanine Aminotransferase 20 U/L (16-61); Alkaline Phosphatase 58 U/L (45-117); Aspartate Aminotransferase 16 U/L (15-37); BUN/Creatinine Ratio 16.8; Bilirubin, Total 0.4 mg/dL (0.2-1.0); GFR African American 55 mL/min; GFR Non-African American 45 mL/min; Phosphorus 3.3 mg/dL (2.5-4.90); Total Protein 6.7 g/dL (6.4-8.2)
[2021-07-28 06:03] LABS: INR 1.09 (0.9-1.15); Partial Thromboplastin Time 32.5 sec (23.6-33.0)
[2021-07-28] MEDS: cefTRIAXone 1GM/50ML D5W 50 ML IV SCH (08:37)
[2021-07-28 09:00] VITALS: BP 113/62
[2021-07-28 09:13] VITALS: BP 158/79
[2021-07-28] MEDS: ASPirin 81 mg TAB PO SCH (10:07)
[2021-07-28] MEDS: PANTOPRAZOLE 40 MG TAB PO SCH (10:07)
[2021-07-28] MEDS: ENOXAPARIN SOD 40 MG/0.4 ML SYRINGE SC SCH (10:07)
[2021-07-28] MEDS: AZITHROMYCIN 500MG/ 250ML 250 ML IV SCH (10:07)
[2021-07-28] MEDS: METOPROLOL TARTRATE 25 MG TAB PO SCH (10:08)
[2021-07-28 13:00] VITALS: BP 119/69
== END 2021-07-28 18:15 | disposition home or self-care (01) | DRG 291 ==
LOC: ER 07:46 → TELE 14:35 → TELE-WESTW 21:11
PROVIDERS: ADMIT Hospitalist; ATTEND Internal Medicine
DX: I13.0 Hypertensive heart and chronic kidney disease with heart failure and stage 1 through stage 4 chronic kidney disease, or unspecified chronic kidney disease (principal); N17.0 Acute kidney failure with tubular necrosis; J96.21 Acute and chronic respiratory failure with hypoxia; J96.22 Acute and chronic respiratory failure with hypercapnia; I50.43 Acute on chronic combined systolic (congestive) and diastolic (congestive) heart failure; E44.0 Moderate protein-calorie malnutrition; J44.1 Chronic obstructive pulmonary disease with (acute) exacerbation; E66.2 Morbid (severe) obesity with alveolar hypoventilation; E11.22 Type 2 diabetes mellitus with diabetic chronic kidney disease; E78.5 Hyperlipidemia, unspecified; E11.51 Type 2 diabetes mellitus with diabetic peripheral angiopathy without gangrene; Z20.822 Contact with and (suspected) exposure to COVID-19; M10.9 Gout, unspecified; K21.9 Gastro-esophageal reflux disease without esophagitis; I27.21 Secondary pulmonary arterial hypertension; L20.9 Atopic dermatitis, unspecified; N18.31 Chronic kidney disease, stage 3a; Z68.37 Body mass index [BMI] 37.0-37.9, adult; Z88.5 Allergy status to narcotic agent; Z79.899 Other long term (current) drug therapy; Z82.49 Family history of ischemic heart disease and other diseases of the circulatory system
CPT/HCPCS: 36415; 36600; 51702; 71045; 78452; 80048; 80053; 80307; 81001; 82805; 82962; 83036; 83735; 83880; 84100; 84443; 84484; 85025; 85379; 85610; 85730; 87040; 87081; 87086; 87426; 93005; 93017; 93306; 93970; 94640; 96372; 96374; 96376; 97163; 99291; G0378; J0696; J1815

== ENCOUNTER 2021-10-05 13:28 | Emergency (ER) | payer OTHER ==
[~2021-10-05] VITALS: Ht 172.7 cm; Wt 104.8 kg
[~2021-10-05 13:28] MED LIST changes: -ACET-1304 PO; -ALB5IS NEB; -ATOR40TA52 PO; -OMEP-260 PO; -PRED2.5T4 PO
[2021-10-05] MEDS ORDERED: NIFEdipine 10 MG CAP PO ONE (15:30)
[2021-10-05 16:58] LABS: Basophils # (auto) 0.1 10 ^3/uL (0-0.2); Basophils % (auto) 1.2 % (0.0-2.0); Eosinophils # (auto) 0.2 10 ^3/uL (0-0.8); Eosinophils % (auto) 2.8 % (0.0-7.0); Hematocrit 43.5 % (41.0-53.0); Lymphocytes # (auto) 1.3 10 ^3/uL (0.4-5.4); Mean Corpuscular Hemoglobin 28.7 pg (28.0-32.0); Mean Corpuscular Hgb Conc. 32.2 g/dL (32.0-36.0); Monocytes # (auto) 0.6 10 ^3/uL (0-1.3); Monocytes % (auto) 10.2 % (0.0-12.0); Neutrophils % (auto) 64.8 % (37.0-80.0); Red Blood Cells 4.89 10^6/uL (4.5-5.90); White Blood Cell 6.2 10^3/uL (4.4-10.8)
[2021-10-05 17:13] LABS: Albumin 3.6 g/dL (3.4-5.0); Calcium 8.9 mg/dL (8.5-10.1); Magnesium 3.3 mg/dL (1.6-2.6); Potassium 4.7 mmol/L (3.5-5.1)
[2021-10-05 17:17] LABS: BUN/Creatinine Ratio 16.8; Bilirubin, Total 0.6 mg/dL (0.2-1.0); Total Protein 6.8 g/dL (6.4-8.2)
[2021-10-05 20:26] VITALS: BP 151/76
== END 2021-10-05 21:01 | disposition home or self-care (01) ==
LOC: ER 13:28
DX: I11.0 Hypertensive heart disease with heart failure (principal); I50.9 Heart failure, unspecified; J44.9 Chronic obstructive pulmonary disease, unspecified; E11.9 Type 2 diabetes mellitus without complications; E78.5 Hyperlipidemia, unspecified; Z88.6 Allergy status to analgesic agent; Z87.891 Personal history of nicotine dependence
CPT/HCPCS: 36415; 70450; 71045; 80053; 83735; 83880; 85025; 93005

== ENCOUNTER → 2021-11-04 | Outpatient (CLI) | payer OTHER ==
[2021-11-04 12:44] LABS: Basophils # (auto) 0.1 10 ^3/uL (0-0.2); Basophils % (auto) 1.1 % (0.0-2.0); Eosinophils # (auto) 0.2 10 ^3/uL (0-0.8); Eosinophils % (auto) 3.8 % (0.0-7.0); Hematocrit 41.8 % (41.0-53.0); Hemoglobin 13.8 g/dL (13.5-17.5); Lymphocytes # (auto) 1.7 10 ^3/uL (0.4-5.4); Lymphocytes % (auto) 27.2 % (10.0-50.0); Mean Corpuscular Hemoglobin 29.7 pg (28.0-32.0); Mean Corpuscular Hgb Conc. 33.1 g/dL (32.0-36.0); Mean Corpuscular Volume 89.7 fL (80.0-100.0); Monocytes # (auto) 0.8 10 ^3/uL (0-1.3); Monocytes % (auto) 12.6 % (0.0-12.0); Neutrophils # (auto) 3.5 10 ^3/uL (1.6-8.6); Neutrophils % (auto) 55.3 % (37.0-80.0); Nucleated Red Blood Cells % 0.1 %; Red Blood Cells 4.66 10^6/uL (4.5-5.90); Red Cell Distribution Width 15.2 % (11.8-14.3); White Blood Cell 6.3 10^3/uL (4.4-10.8)
== END | disposition home or self-care (01) ==
LOC: LAB 11:58
PROVIDERS: ATTEND Internal Medicine
DX: E11.42 Type 2 diabetes mellitus with diabetic polyneuropathy (principal)
CPT/HCPCS: 36415; 85025